=== PATIENT | female | born 1940 | race Caucasian/White ===

== ENCOUNTER 2023-02-17 18:17 | Outpatient (RCR) | payer MEDICARE, SELFPAY | END 2023-03-13 23:59 | disposition home or self-care (01) | LOC: MM 18:17 | PROVIDERS: PCP Internal Medicine; Visit Provider Internal Medicine | DX: Z51.81 Encounter for therapeutic drug level monitoring (principal); Z79.01 Long term (current) use of anticoagulants; I25.2 Old myocardial infarction | CPT/HCPCS: 85610; G0463 ==

== ENCOUNTER 2023-03-18 10:24 | Outpatient (RCR) | payer MEDICARE, SELFPAY | END 2023-04-13 17:11 | disposition home or self-care (01) | LOC: MM 10:24 | PROVIDERS: PCP Internal Medicine; Visit Provider Internal Medicine | DX: Z51.81 Encounter for therapeutic drug level monitoring (principal); Z79.01 Long term (current) use of anticoagulants; I25.2 Old myocardial infarction | CPT/HCPCS: 85610; G0463 ==

== ENCOUNTER 2023-04-14 09:52 | Outpatient (RCR) | payer MEDICARE, SELFPAY | END 2023-05-14 17:45 | disposition home or self-care (01) | LOC: MM 09:52 | PROVIDERS: PCP Internal Medicine; Visit Provider Internal Medicine | DX: Z51.81 Encounter for therapeutic drug level monitoring (principal); Z79.01 Long term (current) use of anticoagulants; I25.2 Old myocardial infarction | CPT/HCPCS: 85610; G0463 ==

== ENCOUNTER 2023-05-15 10:40 | Outpatient (RCR) | payer MEDICARE, SELFPAY | END 2023-06-12 17:04 | disposition home or self-care (01) | LOC: MM 10:40 | PROVIDERS: PCP Internal Medicine; Visit Provider Internal Medicine | DX: Z51.81 Encounter for therapeutic drug level monitoring (principal); Z79.01 Long term (current) use of anticoagulants; I25.2 Old myocardial infarction ==

== ENCOUNTER 2023-06-01 18:05 | Emergency (ER) | payer MEDICARE, SELFPAY ==
[2023-06-01] VITALS (44 sets, daily range): BP systolic 73–121; BP diastolic 32–61; PULSE 58–76; RESP 11–31; TEMP 37.4; O2SAT 78–100; BMI 22.7
--- NOTE | 2023-06-01 18:28 | CT_ITS ---
The [address] [address] Patient Name: BRIANNE HERNANDEZ MRN: [id number] date: 1940 Sex: F Assigned Patient Location: ER Current Patient Location: ER Accession/Order Number: [id number] Exam Date: 06/01/2023 20:05 Report Date: 06/01/2023 20:49 At the request of: CHARLES LOAIZA Procedure: CT head/brain wo con EXAMINATION: CT head/brain wo con HISTORY: Altered mental status - TECHNIQUE: CT head without contrast. All CT scans at this facility use dose modulation, iterative reconstruction, and/or weight based dosing when appropriate to reduce radiation dose to as low as reasonably achievable. COMPARISON: CT brain 03/02/2019 RESULT: Post-operative change: None. Acute change: No evidence of an acute intracranial process. Hemorrhage: No evidence of acute intracranial hemorrhage. Mass Lesion / Mass Effect: No evidence of an intracranial mass or extraaxial fluid collection. No significant mass effect. Chronic change: Patchy foci of low attenuation coefficient are present within the supratentorial white matter which is a nonspecific finding but likely represents moderate microvascular ischemia. Atherosclerotic calcification of the carotid siphons and vertebrobasilar arteries. Stable right cerebral convexity encephalomalacia, secondary to prior large right MCA distribution infarct. Parenchyma: No significant parenchymal volume loss. Ventricles: Normal caliber and morphology. Other: The calvarium, skull base, and extracranial soft tissues are unremarkable. Complete opacification left maxillary sinus. Mastoid air cells are clear. Bilateral lens replacements. CT/CT head/brain wo con IMPRESSION: 1. No acute intracranial abnormality; no acute infarct, intracranial hemorrhage or extra-axial collection. 2. 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 Electronically authenticated by: ALVIN HEAD Date: 06/01/2023 20:49
--- NOTE | 2023-06-01 18:28 | CT_ITS ---
[address] [address] Patient Name: BRIANNE HERNANDEZ MRN: [id number] date: 1940 Sex: F Assigned Patient Location: ER Current Patient Location: ER Accession/Order Number: [id number] Exam Date: 06/01/2023 20:05 Report Date: 06/01/2023 21:02 At the request of: CHARLES LOAIZA Procedure: CT abdomen pelvis wo con CT ABDOMEN/PELVIS WITHOUT IV CONTRAST. INDICATION: Jaundice, gallstones COMPARISON: 12/27/2020 TECHNIQUE: Contiguous axial images were obtained from the lung bases to the pelvic floor without intravenous or oral contrast. Coronal and sagittal reformations are provided. FINDINGS: Somewhat limited evaluation due to motion artifact. LOWER LUNGS: Right lower lobe calcified granuloma. Cardiomegaly. LIVER/BILIARY TREE: No discrete lesion. No intrahepatic ductal dilatation. GALLBLADDER: Evaluation is somewhat limited due to motion artifact. There is mild gallbladder wall thickening. There is questionable pericholecystic stranding. Cholelithiasis. CBD: Limited evaluation. SPLEEN: Normal in size. PANCREAS: No appreciable peripancreatic fluid. No pancreatic ductal dilatation. No discrete lesion. ADRENALS: Normal. KIDNEYS there is a 1.5 cm low-density cystic lesion in the inferior pole left kidney.: No hydronephrosis. Right nephrolithiasis. STOMACH AND BOWEL: Redemonstrated moderate-sized hiatal hernia. No dilated bowel loops. No bowel wall thickening. APPENDIX: Not visualized. PERITONEAL CAVITY: No fluid. No fat stranding. ABDOMINAL WALL: There is questionable pericholecystic stranding.. LYMPH NODES: No mesenteric or retroperitoneal lymphadenopathy by CT criteria. ABDOMINAL AORTA: No aneurysm. PELVIS: Decompressed bladder with Gunn catheter. MUSCULOSKELETAL: No acute osseous abnormality. There are chronic multilevel lumbar vertebral body compression fractures. CT/CT abdomen pelvis wo con IMPRESSION: Cholelithiasis with findings suspicious for acute cholecystitis. Evaluation is somewhat limited due to motion. Electronically authenticated by: LASHAWN RUTH Date: 06/01/2023 21:02
--- NOTE | 2023-06-01 18:28 | XR_ITS ---
The [address] [address] Patient Name: BRIANNE HERNANDEZ MRN: [id number] date: 1940 Sex: F Assigned Patient Location: ER Current Patient Location: ER Accession/Order Number: [id number] Exam Date: 06/01/2023 20:02 Report Date: 06/01/2023 20:53 At the request of: CHARLES LOAIZA Procedure: XR chest 1V EXAMINATION: XR chest 1V HISTORY: Altered mental status COMPARISON: Chest x-ray 04/25/2022 TECHNIQUE: Portable chest FINDINGS: The lung parenchyma is free of consolidation or infiltrate. Stable right hemithorax calcified pulmonary granuloma. No pneumothorax or pleural effusion. Left-sided cardiac pacemaker. The cardiac, mediastinal and hilar contours are normal. The visualized osseous structures exhibit no gross abnormality. XR/XR chest 1V IMPRESSION: No acute cardiopulmonary abnormality. Electronically authenticated by: CATHY STEINBERG Date: 06/01/2023 20:53
--- NOTE | 2023-06-01 18:28 | ECG_ITS ---
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
[2023-06-01] MEDS: 0.9 % SODIUM CHLORIDE 1,000 ML 1000 ML IV ×2 (18:50→20:33)
[2023-06-01 19:13] LABS: pH VBG 7.492 (7.330-7.430)
--- NOTE | 2023-06-01 19:14 | ED.AMS1 ---
HPI - Altered Mental Status General Chief Complaint: Weakness Stated Complaint: ALTERED MENTAL STATUS Time Seen by Provider: 06/01/23 18:22 Source: family Mode of arrival: Wheelchair Limitations: altered mental status and physical limitation History of Present Illness HPI narrative: patient is an 82-year-old female with a history of some baseline dementia who is brought to the emergency department by her granddaughter for the evaluation of altered mental status and weakness over the last two days. Patient's granddaughter provides the entire history, she states that one of the patient's other granddaughters visited the patient last night and noted that she seemed more weak and slightly more confused. She was not able to get herself up out of bed. granddaughter reports that the patient was saturated in urine this afternoon. Today she seems slightly jaundice. She has a history of gallstones but has never had acute cholecystitis. She has had diarrhea today. She has not noted to have any extremity injuries. No fevers or vomiting. She started Xarelto today, she has just been recently switched from Coumadin for her atrial fibrillation. Related Data Allergies Allergy/AdvReac Type Severity Reaction Status Date / Time morphine AdvReac Intermediate Dizziness Verified 06/01/23 18:21 Review of Systems ROS Constitutional Denies: fever or chills Ears, nose, mouth, and throat Denies: throat pain Cardiovascular Denies: chest pain Respiratory Denies: shortness of breath or cough Gastrointestinal Reports: diarrhea; Denies: nausea or vomiting Genitourinary Denies: painful urination Musculoskeletal Denies: back pain Integumentary/Breast Denies: rash Neurological Reports: weakness in extremities Endocrine Denies: excessive urination Hematologic/Lymphatic Denies: easy bruising Exam Narrative Exam Narrative: Gen.: Awake, alert, in no distress Head: Normocephalic, atraumatic ENT: Moist mucous membranes, dry mucous membranes Respiratory: No respiratory distress, lungs clear bilaterally Cardio: Regular rate and rhythm Gastrointestinal: Abdomen is soft, nondistended and nontender to palpation Extremities: Moves extremities equally, no injuries noted Psych: Normal mood and affect Neuro: alert and oriented to person, no slurred speech or unilateral weakness noted. Normal dorsiflexion and plantarflexion of the lower extremities with normal hip flexion bilaterally Skin: Warm, dry, intact; patient is mildly jaundiced Constitutional Vital Signs, click to edit/add: Last Vital Signs Temp 99.3 F 09/18/23 18:14 Pulse 70 06/01/23 20:40 Resp 14 06/01/23 20:40 BP 110/49 06/01/23 20:33 Pulse Ox 96 06/01/23 20:40 O2 Del Method Room Air 06/01/23 18:53 Course Vital Signs Vital signs: Vital Signs Temperature 99.3 F 06/01/23 18:14 Pulse Rate 70 06/01/23 18:14 Respiratory Rate 20 06/01/23 18:14 Blood Pressure 73/61 L 06/01/23 18:14 Pulse Oximetry 99 06/01/23 18:14 Oxygen Delivery Method Room Air 06/01/23 18:14 Temperature 99.3 F 06/01/23 18:14 Pulse Rate 70 06/01/23 20:40 Respiratory Rate 14 06/01/23 20:40 Blood Pressure 110/49 06/01/23 20:33 Pulse Oximetry 96 06/01/23 20:40 Oxygen Delivery Method Room Air 06/01/23 18:53 MDM - Altered Mental Status MDM Narrative Medical decision making narrative: patient had no complaints of pain in the Emergency Room. She was initially hypotensive in treated with IV fluid bolus with improvement of blood pressure. Lab studies show leukocytosis, elevated lactic acid. Blood cultures were obtained. Urine specimen is unremarkable. Patient is noted to have acute kidney injury as well as elevated bilirubin, elevated LFTs. 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 CT shows concern for acute cholecystitis, given the patient's jaundice and elevated bilirubin, we suspect an obstructed stone. She will need transfer to tertiary care facility for ERCP she cannot stay at this facility. She was treated with Invanz due to penicillin ALLERGY. I discussed the case with her granddaughter Ira at bedside who is her power of offender employment specialist. She is in agreement with transfer to tertiary care facility and states that the patient has seen cardiology at [facility] previously and they prefer transfer to this facility. Transfer initiated at 2114. patient was accepted by Dr. Beck ([id number]) at [facility] for transfer. We are awaiting a bed at this time. Critical care time thirty-five minutes Medical Records Attestation: I reviewed the patient's medical records. Lab Data Attestation: I reviewed the patient's lab results. Labs: Lab Results 06/01/23 06/01/23 06/01/23 Range/Units 18:30 18:47 19:55 WBC 14.9 H (4.0-11.0) 10^3/uL RBC 3.86 L (4.20-5.40) 10^6/uL Hgb 12.2 (12.0-16.0) g/dL Hct 37.1 (36.0-48.0) % MCV 96.1 (81.0-99.0) fL MCH 31.6 (26.7-34.0) pg MCHC 32.9 (29.9-35.2) g/dL RDW 14.4 (11.0-15.0) % Plt Count 186 (150-450) 10^3/uL MPV 11.3 (9.5-13.5) fL Neut % (Auto) 82.3 H (43.0-75.0) % Lymph % (Auto) 7.0 L (20.5-60.0) % [place] % (Auto) 9.9 (1.7-12.0) % Eos % (Auto) 0.0 L (0.9-7.0) % Baso % (Auto) 0.1 L (0.2-2.0) % Neut # (Auto) 12.3 H (1.4-6.5) 10^3/uL Lymph # (Auto) 1.0 L (1.2-3.8) 10^3/uL [place] # (Auto) 1.5 H (0.3-0.8) 10^3/uL Eos # (Auto) 0.0 (0.0-0.7) 10^3/uL Baso # (Auto) 0.0 (0.0-0.1) 10^3/uL Abs Immat Gran (auto) 0.10 H (0.00-0.03) 10^3/uL Imm/Tot Granulo (auto) 0.7 H (0.0-0.5) % PT 14.4 H (9.0-11.6) sec INR 1.38 VBG pH 7.492 H (7.330-7.430) VBG pCO2 33.0 L (40.0-52.0) mmHg Sodium 136 (136-145) mmol/L Potassium 3.7 (3.5-5.1) mmol/L Chloride 99 (98-107) mmol/L Carbon Dioxide 28.7 (21.0-32.0) mmol/L Anion Gap 12.0 BUN 36.0 H (7.0-18.0) mg/dL Creatinine 2.09 H (0.55-1.02) mg/dL Est GFR ( Amer) 27 L (>=60) Est GFR (Non-Af Amer) 23 L (>=60) BUN/Creatinine Ratio 17.2 Glucose 131 H (74-106) mg/dL Lactate 2.3 H* (0.4-2.0) mmol/L Calcium 8.9 (8.5-10.1) mg/dL Total Bilirubin 3.1 H (0.2-1.0) mg/dL AST 105 H (15-37) U/L ALT 117 H (14-59) U/L Alkaline Phosphatase 76 (46-116) U/L Ammonia 24 (11-32) umol/L Total Creatine Kinase 52 (26-192) U/L Troponin I High Sens 25.9 (4.0-51.3) pg/mL Total Protein 6.9 (6.4-8.2) g/dL Albumin 2.6 L (3.4-5.0) g/dL Globulin 4.3 g/dL Albumin/Globulin Ratio 0.6 TSH 0.431 (0.358-3.740) uIU/mL Urine Color Dk. orange (YELLOW) Urine Clarity Clear (CLEAR) Urine pH 5.0 (5.0-9.0) Ur Specific [place] 1.025 (1.005-1.025) Urine Protein Negative (NEG/TRACE) mg/dL Urine Glucose (UA) Negative (NEGATIVE) mg/dL Urine Ketones Negative (NEGATIVE) mg/dL Urine Occult Blood Negative (NEGATIVE) Urine Nitrite Negative (NEGATIVE) Urine Bilirubin Moderate A (NEGATIVE) Urine Urobilinogen 2.0 A (0.2-1.0) EU/dL Ur Leukocyte Esterase Negative (NEGATIVE) Acetaminophen <2.0 L (10.0-30.0) ug/mL Imaging Data Chest x-ray: Attestation: I have reviewed the pertinent imaging results. Radiologist's impression: Procedure: XR chest 1V EXAMINATION: XR chest 1V HISTORY: Altered mental status COMPARISON: Chest x-ray 04/25/2022 TECHNIQUE: Portable chest FINDINGS: The lung parenchyma is free of consolidation or infiltrate. Stable right hemithorax calcified pulmonary granuloma. No pneumothorax or pleural effusion. Left-sided cardiac pacemaker. The cardiac, mediastinal and hilar contours are normal. The visualized osseous structures exhibit no gross abnormality. IMPRESSION: No acute cardiopulmonary abnormality. Electronically authenticated by: CATHY STEINBERG Date: 06/01/2023 20:53 CT scan - head: Attestation: I have reviewed the pertinent imaging results. Radiologist's impression: Procedure: CT head/brain wo con EXAMINATION: CT head/brain wo con HISTORY: Altered mental status - TECHNIQUE: CT head without contrast. All CT scans at this facility use dose modulation, iterative reconstruction, and/or weight based dosing when appropriate to reduce radiation dose to as low as reasonably achievable. COMPARISON: CT brain 03/02/2019 RESULT: Post-operative change: None. Acute change: No evidence of an acute intracranial process. Hemorrhage: No evidence of acute intracranial hemorrhage. Mass Lesion / Mass Effect: No evidence of an intracranial mass or extraaxial fluid collection. No significant mass effect. Chronic change: Patchy foci of low attenuation coefficient are present within the supratentorial white matter which is a nonspecific finding but likely represents moderate microvascular ischemia. Atherosclerotic calcification of the carotid siphons and vertebrobasilar arteries. Stable right cerebral convexity encephalomalacia, secondary to prior large right MCA distribution infarct. Parenchyma: No significant parenchymal volume loss. Ventricles: Normal caliber and morphology. Other: The calvarium, skull base, and extracranial soft tissues are unremarkable. Complete opacification left maxillary sinus. Mastoid air cells are clear. Bilateral lens replacements. IMPRESSION: 1. No acute intracranial abnormality; no acute infarct, intracranial hemorrhage or extra-axial collection. 2. 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 Electronically authenticated by: ALVIN HEAD Date: 06/01/2023 20:49 CT scan - abdomen: Radiologist's impression: Procedure: CT abdomen pelvis wo con CT ABDOMEN/PELVIS WITHOUT IV CONTRAST. INDICATION: Jaundice, gallstones COMPARISON: 12/27/2020 TECHNIQUE: Contiguous axial images were obtained from the lung bases to the pelvic floor without intravenous or oral contrast. Coronal and sagittal reformations are provided. FINDINGS: Somewhat limited evaluation due to motion artifact. LOWER LUNGS: Right lower lobe calcified granuloma. Cardiomegaly. LIVER/BILIARY TREE: No discrete lesion. No intrahepatic ductal dilatation. GALLBLADDER: Evaluation is somewhat limited due to motion artifact. There is mild gallbladder wall thickening. There is questionable pericholecystic stranding. Cholelithiasis. CBD: Limited evaluation. SPLEEN: Normal in size. PANCREAS: No appreciable peripancreatic fluid. No pancreatic ductal dilatation. No discrete lesion. ADRENALS: Normal. KIDNEYS there is a 1.5 cm low-density cystic lesion in the inferior pole left kidney.: No hydronephrosis. Right nephrolithiasis. STOMACH AND BOWEL: Redemonstrated moderate-sized hiatal hernia. No dilated bowel loops. No bowel wall thickening. APPENDIX: Not visualized. PERITONEAL CAVITY: No fluid. No fat stranding. ABDOMINAL WALL: There is questionable pericholecystic stranding.. LYMPH NODES: No mesenteric or retroperitoneal lymphadenopathy by CT criteria. ABDOMINAL AORTA: No aneurysm. PELVIS: Decompressed bladder with Gunn catheter. MUSCULOSKELETAL: No acute osseous abnormality. There are chronic multilevel lumbar vertebral body compression fractures. IMPRESSION: Cholelithiasis with findings suspicious for acute cholecystitis. Evaluation is somewhat limited due to motion. Electronically authenticated by: LASHAWN RUTH Date: 06/01/2023 21:02 ECG Data Attestation: I personally reviewed and interpreted this ECG as follows: (atrial flutter at a rate of sixty-three, paced rhythm, no acute ST elevation or ectopy. EKG reviewed by attending physician) Discharge Plan Discharge Chief Complaint: Weakness Clinical Impression: Acute kidney injury, Jaundice, Weakness, Acute cholecystitis Patient Disposition: [facility] Time of Disposition Decision: 21:42 Discharge Location: [facility] Condition: Good Mode of Transportation: EMS Referrals: Shaikh Dhaliwal MD [Primary Care Provider] - 1 week
[2023-06-01 19:18] LABS: Basophils Percent Auto 0.1 % (0.2-2.0); Hematocrit 37.1 % (36.0-48.0); Hemoglobin 12.2 g/dL (12.0-16.0); Immature Granulocytes Pct Auto 0.7 % (0.0-0.5); Mean Corpuscular HGB Conc 32.9 g/dL (29.9-35.2); Mean Corpuscular Hemoglobin 31.6 pg (26.7-34.0); Mean Corpuscular Volume 96.1 fL (81.0-99.0); Mean Platelet Volume 11.3 fL (9.5-13.5); Monocytes Absolute Auto 1.5 10^3/uL (0.3-0.8); Monocytes Percent Auto 9.9 % (1.7-12.0); Neutrophils Absolute Auto 12.3 10^3/uL (1.4-6.5); Neutrophils Percent Auto 82.3 % (43.0-75.0); Platelet Count 186 10^3/uL (150-450); Red Blood Count 3.86 10^6/uL (4.20-5.40); Red Cell Distribution Width 14.4 % (11.0-15.0); White Blood Count 14.9 10^3/uL (4.0-11.0)
[2023-06-01 19:30] LABS: INR 1.38; Prothrombin Time 14.4 sec (9.0-11.6)
[2023-06-01 19:33] LABS: Ammonia 24 umol/L (11-32)
[2023-06-01 19:39] LABS: Alanine Aminotransferase 117 U/L (14-59); Albumin Globulin Ratio 0.6; Albumin Level 2.6 g/dL (3.4-5.0); Alkaline Phosphatase 76 U/L (46-116); Aspartate Amino Transferase 105 U/L (15-37); BUN Creatinine Ratio 17.2; Bilirubin Total 3.1 mg/dL (0.2-1.0); Calcium 8.9 mg/dL (8.5-10.1); Carbon Dioxide 28.7 mmol/L (21.0-32.0); Chloride 99 mmol/L (98-107); Estimated GFR (African America 27 (>=60); Estimated GFR (Non-African Ame 23 (>=60); Globulin 4.3 g/dL; Glucose 131 mg/dL (74-106); Potassium 3.7 mmol/L (3.5-5.1); Sodium 136 mmol/L (136-145); Total Protein 6.9 g/dL (6.4-8.2)
[2023-06-01 19:45] LABS: Thyroid Stimulating Hormone 0.431 uIU/mL (0.358-3.740); Troponin I High Sensitivity 25.9 pg/mL (4.0-51.3)
[2023-06-01 19:57] LABS: Lactate/Lactic Acid 2.3 mmol/L (0.4-2.0)
[2023-06-01 20:09] LABS: Acetaminophen <2.0 ug/mL (10.0-30.0)
[2023-06-01 20:26] LABS: Creatine Kinase 52 U/L (26-192)
[2023-06-01 21:03] LABS: Bilirubin Urine MODERATE (NEGATIVE); Blood Urine NEGATIVE (NEGATIVE); Clarity Urine CLEAR (CLEAR); Color Urine DK. ORANGE (YELLOW); Glucose Urine UA NEGATIVE (NEGATIVE); Ketones Urine NEGATIVE (NEGATIVE); Leukocyte Esterase Urine NEGATIVE (NEGATIVE); Nitrite Urine NEGATIVE (NEGATIVE); Protein Urine NEGATIVE (NEG/TRACE); Specific Gravity Urine 1.025 (1.005-1.025)
[2023-06-01] MEDS: ERTAPENEM SODIUM 1 GM in 0.9 % SODIUM CHLORIDE 50 ML IV (21:27)
[2023-06-01 21:33] LABS: Urine Microscopic Indicated NO
[2023-06-01 21:57] LABS: Lactate/Lactic Acid 0.6 mmol/L (0.4-2.0)
== END 2023-06-01 23:55 | disposition short-term general hospital (02) ==
PROVIDERS: Physician Assistant; Emergency Provider Emergency Medicine; PCP Internal Medicine
DX: K81.0 Acute cholecystitis (principal); R53.1 Weakness; R17 Unspecified jaundice; N17.9 Acute kidney failure, unspecified; I95.9 Hypotension, unspecified; F03.90 Unspecified dementia, unspecified severity, without behavioral disturbance, psychotic disturbance, mood disturbance, and anxiety; Z79.01 Long term (current) use of anticoagulants; I48.91 Unspecified atrial fibrillation
CPT/HCPCS: 36415; 70450; 71045; 74176; 80053; 80329; 81003; 82140; 82550; 82800; 83605; 83690; 84443; 84484; 85025; 85610; 87040; 93005; 96361; 96365; 99285; J1335

== ENCOUNTER 2023-06-15 02:12 | Outpatient (RCR) | payer MEDICARE, SELFPAY | END 2023-07-14 17:30 | disposition home or self-care (01) | LOC: MM 02:12 | PROVIDERS: PCP Internal Medicine; Visit Provider Internal Medicine | DX: Z51.81 Encounter for therapeutic drug level monitoring (principal); Z79.01 Long term (current) use of anticoagulants; I25.2 Old myocardial infarction ==

== ENCOUNTER 2023-07-15 00:31 | Outpatient (RCR) | payer MEDICARE, SELFPAY | END 2023-08-13 16:43 | disposition home or self-care (01) | LOC: MM 00:31 | PROVIDERS: PCP Internal Medicine; Visit Provider Internal Medicine | DX: Z51.81 Encounter for therapeutic drug level monitoring (principal); Z79.01 Long term (current) use of anticoagulants; I25.2 Old myocardial infarction ==

== ENCOUNTER 2023-09-05 17:27 | Emergency (ER) | payer MEDICARE, SELFPAY ==
[2023-09-05 17:36] VITALS: BP 154/80; PULSE 88; RESP 16; TEMP 36.7; O2SAT 99; BMI 18.9
--- NOTE | 2023-09-05 17:48 | ED.GENADUL1 ---
HPI - General Adult General Chief complaint: Recheck/Abnormal Lab/Rx Stated complaint: gallbladder drain accidentally pulled out Time Seen by Provider: 09/05/23 17:29 Source: patient Mode of arrival: walk-in History of Present Illness HPI narrative: Patient is an 82-year-old female who presents to the emergency department after accidentally pulling out her chronic gallbladder drain. She was diagnosed with acute cholecystitis in May of this year at this facility and was transferred to [facility] to be evaluated by general surgery. She was not found to be a surgical candidate for the acute cholecystitis and instead a drain was placed. Patient is currently on hospice. She accidentally removed her drain today, pulling it out. There has been minimal drainage on a bandage that the daughter placed. No bleeding. Patient has no other focal medical complaints. Related Data Home Medications Medication Instructions Recorded Confirmed apixaban 2.5 mg tablet (Eliquis) 2.5 mg PO QDAY 06/01/23 06/01/23 carvedilol 3.125 mg tablet 3.125 mg PO Q12H 06/01/23 06/01/23 donepezil 10 mg tablet 10 mg PO QDAY 06/01/23 06/01/23 fenofibrate nanocrystallized 145 145 mg PO QDAY 06/01/23 06/01/23 mg tablet ferrous sulfate 325 mg (65 mg 325 mg PO QDAY 06/01/23 06/01/23 iron) tablet furosemide 20 mg tablet 20 mg PO QDAY 06/01/23 06/01/23 levothyroxine 75 mcg tablet 75 mcg PO QDAY 06/01/23 06/01/23 lisinopril 2.5 mg tablet 2.5 mg PO QDAY 06/01/23 06/01/23 paroxetine HCl 10 mg tablet 10 mg PO QDAY 06/01/23 06/01/23 spironolactone 25 mg tablet 25 mg PO QDAY 06/01/23 06/01/23 warfarin 4 mg tablet 4 mg PO QDAY 06/01/23 06/01/23 Allergies Allergy/AdvReac Type Severity Reaction Status Date / Time morphine AdvReac Intermediate Dizziness Verified 09/05/23 17:36 Review of Systems ROS Constitutional Denies: fever or chills Ears, nose, mouth, and throat Denies: neck pain Cardiovascular Denies: chest pain Respiratory Denies: shortness of breath or cough Gastrointestinal Denies: nausea, vomiting or diarrhea Genitourinary Denies: painful urination Integumentary/Breast Denies: rash Neurological Denies: headache Exam Narrative Exam Narrative: Gen.: Awake, alert, in no distress Head: Normocephalic, atraumatic ENT: Moist mucous membranes Respiratory: No respiratory distress Gastrointestinal: Abdomen is soft, nondistended and nontender to palpation; small incision in the right upper quadrant where the drain has been removed, no active drainage, no lacerations or bleeding Extremities: Moves extremities equally Psych: Normal mood and affect Neuro: No focal neuro deficit Skin: Warm, dry, intact Constitutional Vital Signs, click to edit/add: Last Vital Signs Temp 98.0 F 09/05/23 17:36 Pulse 88 09/05/23 17:36 Resp 16 09/05/23 17:36 BP 154/80 H 09/05/23 17:36 Pulse Ox 99 09/05/23 17:36 O2 Del Method Room Air 09/05/23 17:36 Course Vital Signs Vital signs: Vital Signs Temperature 98.0 F 09/05/23 17:36 Pulse Rate 88 09/05/23 17:36 Respiratory Rate 16 09/05/23 17:36 Blood Pressure 154/80 H 09/05/23 17:36 Pulse Oximetry 99 09/05/23 17:36 Oxygen Delivery Method Room Air 09/05/23 17:36 Temperature 98.0 F 09/05/23 17:36 Pulse Rate 88 09/05/23 17:36 Respiratory Rate 16 09/05/23 17:36 Blood Pressure 154/80 H 09/05/23 17:36 Pulse Oximetry 99 09/05/23 17:36 Oxygen Delivery Method Room Air 09/05/23 17:36 Medical Decision Making MDM Narrative Medical decision making narrative: Patient with no pain, bleeding or drainage at the site of the gallbladder drain which is completely removed. She has stable vital signs. Discussed with [place] surgeon on-call, Dr. [place], who discussed the case with attending physician. There is no need for emergent transfer or placement of the gallbladder drain. Patient can follow-up with general surgery as an outpatient as needed. Return to the ER if symptoms change or worsen. Medical Records Medical records reviewed: Yes I reviewed the patient's medical records Discharge Plan Discharge Chief Complaint: Recheck/Abnormal Lab/Rx Clinical Impression: Encounter for wound re-check Patient Disposition: Home, Self-Care Time of Disposition Decision: 18:27 Condition: Good Prescriptions / Home Meds: No Action Eliquis 2.5 mg tablet 2.5 mg PO QDAY carvedilol 3.125 mg tablet 3.125 mg PO Q12H donepezil 10 mg tablet 10 mg PO QDAY fenofibrate nanocrystallized 145 mg tablet 145 mg PO QDAY furosemide 20 mg tablet 20 mg PO QDAY ferrous sulfate 325 mg (65 mg iron) tablet 325 mg PO QDAY levothyroxine 75 mcg tablet 75 mcg PO QDAY lisinopril 2.5 mg tablet 2.5 mg PO QDAY paroxetine HCl 10 mg tablet 10 mg PO QDAY spironolactone 25 mg tablet 25 mg PO QDAY warfarin 4 mg tablet 4 mg PO QDAY Instructions: Acute Wounds (ED) Additional Instructions: Follow up with [facility] surgery - tel:[phone] Stand Alone Forms: Portal Instructions Referrals: Shaikh Dhaliwal MD [Primary Care Provider] - 1 week
--- OUTSIDE RECORDS SUMMARY | 2023-09-05 17:50 | XMS_ITS | CCD ---
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 Role Phone TERRI CHANNING Attending Unavailable MASROOR, CHANNING Admitting Unavailable UNKNOWN, PHYSICIAN Primary Care Unavailable UNKNOWN, PHYSICIAN Referring Unavailable ERIC HANDLEY Admitting Unavailable ERIC HANDLEY Attending Unavailable FAWWAD, COLLINS Primary Care Unavailable FAWWAD, COLLINS Referring Unavailable MASROOR, CHANNING Admitting Unavailable UNKNOWN, PHYSICIAN Primary Care Unavailable UNKNOWN, PHYSICIAN Referring Unavailable MASROOR, CHANNING Attending Unavailable ERIC HANDLEY Referring Unavailable ERIC HANDLEY Referring Unavailable FAWWAD, COLLINS H Primary Care Unavailable FAWWAD, COLLINS H Admitting Unavailable FAWWAD, COLLINS H Attending Unavailable FAWWAD, COLLINS H Primary Care Unavailable FAWWAD, COLLINS H Admitting Unavailable FAWWAD, COLLINS H Attending Unavailable FAWWAD, COLLINS H Attending Unavailable FAWWAD, COLLINS H Admitting Unavailable FAWWAD, COLLINS H Primary Care Unavailable EDYTA MORENO Primary Care Unavailable FAWWAD, COLLINS H Admitting Unavailable FAWWAD, COLLINS H Attending Unavailable FAWWAD, COLLINS H Primary Care Unavailable FAWWAD, COLLINS H Admitting Unavailable FAWWAD, COLLINS H Attending Unavailable FAWWAD, COLLINS H Primary Care Unavailable FAWWAD, COLLINS H Admitting Unavailable FAWWAD, COLLINS H Attending Unavailable FAWWAD, COLLINS H Primary Care Unavailable FAWWAD, COLLINS H Admitting Unavailable FAWWAD, COLLINS H Attending Unavailable FAWWAD, COLLINS H Attending Unavailable FAWWAD, COLLINS H Admitting Unavailable FAWWAD, COLLINS H Primary Care Unavailable FAWWAD, COLLINS H Primary Care Unavailable FAWWAD, COLLINS H Consulting Unavailable FAWWAD, COLLINS H Admitting Unavailable FAWWAD, COLLINS H Attending Unavailable FAWWAD, COLLINS H Primary Care Unavailable ARIELLA, ERIC Admitting Unavailable ARIELLA, ERIC Consulting Unavailable ARIELLA, ERIC Attending Unavailable FAWWAD, COLLINS H Consulting Unavailable FAWWAD, COLLINS H Attending Unavailable FAWWAD, COLLINS H Admitting Unavailable FAWWAD, COLLINS H Primary Care Unavailable FAWWAD, COLLINS H Primary Care Unavailable HOY ., DR GARCIA Attending Unavailable SIXTOY ., DR GARCIA Admitting Unavailable KEDAR, DR BITA Chaudhry Consulting Unavailable HOY ., DR GARCIA Consulting Unavailable ADIELCHNY ., NGOC SOTO Consulting UnavailCATHY Chatterjee Consulting Unavailable FAWWAD, COLLINS H Attending Unavailable FAWWAD, COLLINS H Admitting Unavailable FAWWAD, COLLINS H Primary Care Unavailable FAWWAD, COLLINS H Primary Care Unavailable FAWWAD, COLLINS H Attending Unavailable FAWWAD, COLLINS H Admitting Unavailable FAWWAD, COLLINS H Primary Care Unavailable FAWWAD, COLLINS H Attending Unavailable FAWWAD, COLLINS H Admitting Unavailable Allergies Allergy Classification Reported Allergen(s) Allergy Type Date of Onset Reaction(s) Facility (1 source) Morphine Drug Allergy 9 [facility] (1 source) ALLERGIES NOT ON FILE; Translations: [ALLERGIES NOT ON FILE] Propensity to adverse reactions (disorder) [facility] (1 source) Morphine Drug Allergy [facility] Problems Active Problems Problem Classification Problem Date Documented Da te Episodic/Chronic Cardiac dysrhythmias (5 sources) Unspecified atrial fibrillation; Translations: [Paroxysmal atrial fibrillation] Onset: 03-21-2022 Chronic Conduction disorders (3 sources) Encounter for adjustment and management of automatic implantable cardiac defibrillator; Translations: [Presence of cardiac pacemaker] Onset: 04-30-2022 Chronic Congestive heart failure; nonhypertensive (1 source) Acute on chronic combined systolic (congestive) and diastolic (congestive) heart failure; Translations: [AC CHRN COMB SYSTOLIC AND DIASTOL CHF] Onset: 04-30-2022 Chronic Coronary atherosclerosis and other heart disease (3 sources) Old myocardial infarction; 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] Onset: 04-30-2022 Chronic Diabetes mellitus with complications (5 sources) Type 2 diabetes mellitus with diabetic chronic kidney disease; Translations: [TYPE 2 DM W/DIABETIC CKD] Onset: 04-30-2022 Chronic Diseases of white blood cells (1 source) Elevated white blood cell count, unspecified; Translations: [ELEVATED WHITE BLOOD CELL COUNT UNS] Onset: 04-30-2022 Chronic Heart valve disorders (1 source) Combined rheumatic disorders of mitral, aortic and tricuspid valves; Translations: [COMB RHEUMAT D/O MITRL AORTC TRICSP] Onset: 03-25-2022 Chronic Hypertension with complications and secondary hypertension (1 source) Hypertensive heart and chronic kidney disease with heart failure and stage 1 through stage 4 chronic kidney disease, or unspecified chronic kidney disease; Translations: [HTN HRT CKD W/HF STAGE 1-4/UNS CKD] Onset: 04-30-2022 Chronic Other aftercare (4 sources) Encounter for therapeutic drug level monitoring; Translations: [ENC THERAPEUTC DRUG LEVL MONITORING] Onset: 01-12-2023 Episodic Other aftercare (1 source) 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 container terminal (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) use of anticoagulants; Translations: [CENTRAL CONTROL ROOM OPERATOR CURRNT USE ANTICOAGULANTS] Onset: 02-11-2023 Episodic Syncope (2 sources) Syncope and collapse; Translations: [Syncope and collapse] Onset: 10-09-2022 Episodic Thyroid disorders (1 source) Hypothyroidism, unspecified; Translations: [HYPOTHYROIDISM UNSPECIFIED] Onset: 11-22-2022 Chronic Unclassified (1 source) CHRN KIDNEY DISEASE STG 3 UNSP; Translations: [CHRN KIDNEY DISEASE STG 3 UNSP] Onset: 11-22-2022 Viral infection (1 source) COVID-19; Translations: [COVID-19] Onset: 04-30-2022 Past or Other Problems Problem Classification Problem Date Documented Da te Episodic/Chronic Acute and unspecified renal failure (5 sources) Acute kidney failure, unspecified; Translations: [ACUTE KIDNEY FAILURE UNSPECIFIED] Onset: 04-30-2022 Episodic Coronary atherosclerosis and other heart disease (1 source) Presence of aortocoronary bypass graft; Translations: [PRESENCE AORTOCORONARY BYPASS GRAFT] Onset: 04-30-2022 Episodic Fever of unknown origin (4 sources) Fever, unspecified; Translations: [FEVER UNSPECIFIED] Onset: 04-26-2022 Episodic Fluid and electrolyte disorders (1 source) Hyperkalemia; Translations: [HYPERKALEMIA] Onset: 04-30-2022 Episodic Other aftercare (1 source) Other senior care (current) drug therapy; Translations: [OTH PENITENTIARY CURRENT DRUG THERAPY] Onset: 04-30-2022 Episodic Other circulatory disease (1 source) Personal history of transient ischemic attack (TIA), and cerebral infarction without residual deficits; Translations: [PERS HX TIA AND CI NO RESID DEFICIT] Onset: 11-13-2022 Episodic Other screening for suspected conditions (not mental disorders or infectious disease) (1 source) Other specified abnormal findings of blood chemistry; Translations: [OTH SPEC ABNORMAL FINDINGS BLD CHEM] Onset: 04-30-2022 Episodic Results Test Name Value Interpretation Reference Range Facility CBC AUTO DIFFon 11-20-2022 BASO # 0.0 103/ul Normal 0.0-0.1 [facility] Comment on above: Performed By: #### C BC #### [facility] [address] [address] [address] James Pan Basophils/100 WBC (Bld) 0.4 % Normal 0.2-2.0 [facility] Comment on above: Performed By: #### C BC #### [facility] [address] [address] [address] James Pan EO # 0.1 103/ul Normal 0.0-0.7 [facility] Comment on above: Performed By: #### C BC #### [facility] [address] [address] [address] James Pan Eosinophils/100 WBC (Bld) 1.4 % Normal 0.9-7.0 [facility] Comment on above: Performed By: #### C BC #### [facility] [address] [address] [address] James Pan Erythrocyte distribution width (RBC) [Ratio] 13.8 % Normal 11.0-15.0 [facility] Comment on above: Performed By: #### C BC #### [facility] [address] [address] [address] James Pan Hematocrit (Bld) [Volume fraction] 45.7 % Normal 36.0-48.0 [facility] Comment on above: Performed By: #### C BC #### [facility] [address] [place] [address] Dr. James Pan Hemoglobin (Bld) [Mass/Vol] 14.5 g/dL Normal 12.0-16.0 [facility] Comment on above: Performed By: #### C BC #### [facility] [address] [place] [address] Dr. James Pan IG # 0.02 10e3/ul Normal 0.00-0.03 [facility] Comment on above: Performed By: #### C BC #### [facility] [address] [place] [address] Dr. James Pan IG % 0.3 % Normal 0.0-0.5 [facility] Comment on above: Performed By: #### C BC #### [facility] [address] [place] [address] Dr. James Pan LYMPH # 2.1 103/ul Normal 1.2-3.8 [facility] Comment on above: Performed By: #### C BC #### [facility] [address] [place] [address] Dr. James Pan Lymphocytes/100 WBC (Bld) 27.5 % Normal 20.5-60.0 [facility] Comment on above: Performed By: #### C BC #### [facility] [address] [place] [address] Dr. James Pan MANUAL DIFF REQ NO Normal [facility] Comment on above: Performed By: #### C BC #### [facility] [address] [place] [address] Dr. James Pan MCH (RBC) [Entitic mass] 30.1 pg Normal 26.7-34.0 [facility] Comment on above: Performed By: #### C BC #### [facility] [address] [address] [address] James Pan MCHC (RBC) [Mass/Vol] 31.7 g/dL Normal 29.9-35.2 [facility] Comment on above: Performed By: #### C BC #### [facility] [address] [address] [address] James Pan MCV (RBC) [Entitic vol] 95.0 fL Normal 81.0-99.0 [facility] Comment on above: Performed By: #### C BC #### [facility] [address] [place] [address] Dr. James Pan MONO # 0.7 103/ul Normal 0.3-0.8 [facility] Comment on above: Performed By: #### C BC #### [facility] [address] [place] [address] Dr. James Pan Monocytes/100 WBC (Bld) 8.6 % Normal 1.7-12.0 [facility] Comment on above: Performed By: #### C BC #### [facility] [address] [place] [address] Dr. James Pan NEUT # 4.7 103/ul Normal 1.4-6.5 [facility] Comment on above: Performed By: #### C BC #### [facility] [address] [place] [address] Dr. James Pan Neutrophils/100 WBC (Bld) 61.8 % Normal 43.0-75.0 [facility] Comment on above: Performed By: #### C BC #### [facility] [address] [place] [address] Dr. James Pan Platelet mean volume (Bld) [Entitic vol] 9.8 fL Normal 9.5-13.5 [facility] Comment on above: Performed By: #### C BC #### [facility] [address] [place] [address] Dr. James Pan PLT 235 103/ul Normal 150-450 [facility] Comment on above: Performed By: #### C BC #### [facility] [address] [address] [address] James Pan RBC 4.81 106/ul Normal 4.20-5.40 [facility] Comment on above: Performed By: #### C BC #### [facility] [address] [place] [address] Dr. James Pan WBC 7.6 103/ul Normal 4.0-11.0 [facility] Comment on above: Performed By: #### C BC #### [facility] [address] [place] [address] Dr. James Pan GLYCOHEMOGLOBIN A1Con 2022 ADA RECOMMENDATION SEE BELOW Normal [facility] Comment on above: Result Comment: ADA RECOMMENDED LIMIT 4.0 - 6.0 ADA THERAPEUTIC TARGET < 7.0 ACTION SUGGESTED > 7.0 Performed By: #### C VDTBH #### [facility] [address] [place] [address] Dr. James Pan Glucose [Mass/Vol] 105 mg/dL Normal [facility] Comment on above: Performed By: #### C VDTBH #### [facility] [address] [place] [address] Dr. James Pan HbA1c (Bld) [Mass fraction] 5.3 % Normal 4.5-6.2 [facility] Comment on above: Performed By: #### C VDTBH #### [facility] [address] [place] [address] Dr. James Pan PROF 14(COMP METB)on 023 Albumin [Mass/Vol] 3.9 g/dL Normal 3.4-5.0 [facility] Comment on above: Performed By: #### U RTPCR #### [facility] [address] [place] [address] Dr. James Pan Albumin/Globulin [Mass ratio] 0.9 {ratio} Normal [facility] Comment on above: Performed By: #### U RTPCR #### [facility] [address] [place] [address] Dr. James Pan ALP [Catalytic activity/Vol] 52 U/L Normal 46-116 [facility] Comment on above: Performed By: #### U RTPCR #### [facility] [address] [address] [address] James Pan ALT [Catalytic activity/Vol] 20 U/L Normal 14-59 [facility] Comment on above: Performed By: #### U RTPCR #### [facility] [address] [address] [address] James Pan Anion gap [Moles/Vol] 13.3 mmol/L Normal [facility] Comment on above: Performed By: #### U RTPCR #### [facility] [address] [address] [address] James Pan AST [Catalytic activity/Vol] 33 U/L Normal 15-37 [facility] Comment on above: Performed By: #### U RTPCR #### [facility] [address] [place] [address] Dr. James Pan Bilirubin [Mass/Vol] 0.5 mg/dL Normal 0.2-1.0 [facility] Comment on above: Performed By: #### U RTPCR #### [facility] [address] [place] [address] Dr. James Pan Calcium [Mass/Vol] 10.1 mg/dL Normal 8.5-10.1 [facility] Comment on above: Performed By: #### U RTPCR #### [facility] [address] [place] [address] Dr. James Pan Chloride [Moles/Vol] 104 mmol/L Normal 98-107 [facility] Comment on above: Performed By: #### U RTPCR #### [facility] [address] [address] [address] James Pan CO2 [Moles/Vol] 29.8 mmol/L Normal 21.0-32.0 [facility] Comment on above: Performed By: #### U RTPCR #### [facility] [address] [address] [address] James Pan Creatinine [Mass/Vol] 1.50 mg/dL Critically high 0.55-1.02 [facility] Comment on above: Performed By: #### U RTPCR #### [facility] [address] [address] [address] James Pan EGFR-AF ECUADOREAN 40 mL/min/1.73m2 Critically low >=60 [facility] Comment on above: Performed By: #### U RTPCR #### [facility] [address] [address] [address] James Pan EGFR-NON AF ECUADOREAN 33 mL/min/1.73m2 Critically low >=60 [facility] Comment on above: Performed By: #### U RTPCR #### [facility] [address] [address] [address] James Pan Globulin (S) [Mass/Vol] 4.2 g/dL Normal [facility] Comment on above: Performed By: #### U RTPCR #### [facility] [address] [place] [address] Dr. James Pan Glucose [Mass/Vol] 84 mg/dL Normal 74-106 [facility] Comment on above: Performed By: #### U RTPCR #### [facility] [address] [address] [address] James Pan Potassium [Moles/Vol] 5.1 mmol/L Normal 3.5-5.1 [facility] Comment on above: Performed By: #### U RTPCR #### [facility] [address] [address] [address] James Pan Protein [Mass/Vol] 8.1 g/dL Normal 6.4-8.2 [facility] Comment on above: Performed By: #### U RTPCR #### [facility] [address] [address] [address] James Pan Sodium [Moles/Vol] 142 mmol/L Normal 136-145 [facility] Comment on above: Performed By: #### U RTPCR #### [facility] [address] [address] [address] James Pan Urea nitrogen [Mass/Vol] 36.0 mg/dL Critically high 7.0-18.0 [facility] Comment on above: Performed By: #### U RTPCR #### [facility] [address] [place] [address] Dr. James Pan Urea nitrogen/Creatinine [Mass ratio] 24.0 mg/mg Normal [facility] Comment on above: Performed By: #### U RTPCR #### [facility] [address] [place] [address] Dr. James Pan TSHon 11-20-2022 TSH 1.427 uIU/mL Normal 0.358-3.740 [facility] Comment on above: Performed By: #### U RTPCR #### [facility] [address] [place] [address] Dr. James Pan URINE T PROTEIN CREAT RATIOo n 11-20-2022 Protein (U) [Mass/Vol] 5.1 mg/dL Normal <=12.0 [facility] Comment on above: Performed By: #### U RTPCR #### [facility] [address] [place] [address] Dr. James Pan UR PROT CREAT RAT 0.14 Normal [facility] Comment on above: Performed By: #### U RTPCR #### [facility] [address] [place] [address] Dr. James Pan URINE CREAT 37.11 mg/dL Normal 20.00-300.00 [facility] Comment on above: Performed By: #### U RTPCR #### [facility] [address] [place] [address] Dr. James Pan PROF CHEM 8 (BAS METB)on Anion gap [Moles/Vol] 11.8 mmol/L Normal [facility] Comment on above: Performed By: #### U RTPCR #### [facility] [address] [place] [address] Dr. James Pan Calcium [Mass/Vol] 8.7 mg/dL Normal 8.5-10.1 [facility] Comment on above: Performed By: #### U RTPCR #### [facility] [address] [place] [address] Dr. James Pan Chloride [Moles/Vol] 102 mmol/L Normal 98-107 [facility] Comment on above: Performed By: #### U RTPCR #### [facility] [address] [place] [address] Dr. James Pan CO2 [Moles/Vol] 30.6 mmol/L Normal 21.0-32.0 [facility] Comment on above: Performed By: #### U RTPCR #### [facility] [address] [place] [address] Dr. James Pan Creatinine [Mass/Vol] 1.53 mg/dL Critically high 0.55-1.02 [facility] Comment on above: Performed By: #### U RTPCR #### [facility] [address] [place] [address] Dr. James Pan EGFR-AF ECUADOREAN 39 mL/min/1.73m2 Critically low >=60 [facility] Comment on above: Performed By: #### U RTPCR #### [facility] [address] [place] [address] Dr. James Pan EGFR-NON AF ECUADOREAN 32 mL/min/1.73m2 Critically low >=60 [facility] Comment on above: Performed By: #### U RTPCR #### [facility] [address] [place] [address] Dr. James Pan Glucose [Mass/Vol] 126 mg/dL Critically high 74-106 [facility] Comment on above: Performed By: #### U RTPCR #### [facility] [address] [place] [address] Dr. James Pan Potassium [Moles/Vol] 4.4 mmol/L Normal 3.5-5.1 [facility] Comment on above: Result Comment: SPEC IMEN SLIGHTLY HEMOLYZED MAY AFFECT K+ RESULT Performed By: #### U RTPCR #### [facility] [address] [place] [address] Dr. James Pan Sodium [Moles/Vol] 140 mmol/L Normal 136-145 [facility] Comment on above: Performed By: #### U RTPCR #### [facility] [address] [place] [address] Dr. James Pan Urea nitrogen [Mass/Vol] 23.0 mg/dL Critically high 7.0-18.0 [facility] Comment on above: Performed By: #### U RTPCR #### [facility] [address] [place] [address] Dr. James Pan Urea nitrogen/Creatinine [Mass ratio] 15.0 mg/mg Normal [facility] Comment on above: Performed By: #### U RTPCR #### [facility] [address] [place] [address] Dr. James Pan BNPon 04-28-2022 Natriuretic peptide B (Bld) [Mass/Vol] 08010.0 pg/mL Critically high <=1,800.0 [facility] Comment on above: Performed By: #### B PRINTING PLATE CLERK, CMP #### [facility] [address] [place] [address] Dr. James Pan CBC AUTO DIFFon 04-28-2022 BASO # 0.0 103/ul Normal 0.0-0.1 [facility] Comment on above: Performed By: #### C BC #### [facility] [address] [place] [address] Dr. James Pan Basophils/100 WBC (Bld) 0.1 % Critically low 0.2-2.0 [facility] Comment on above: Performed By: #### C BC #### [facility] [address] [place] [address] Dr. James Pan EO # 0.0 103/ul Normal 0.0-0.7 [facility] Comment on above: Performed By: #### C BC #### [facility] [address] [place] [address] Dr. James Pan Eosinophils/100 WBC (Bld) 0.0 % Critically low 0.9-7.0 [facility] Comment on above: Performed By: #### C BC #### [facility] [address] [place] [address] Dr. James Pan Erythrocyte distribution width (RBC) [Ratio] 13.9 % Normal 11.0-15.0 [facility] Comment on above: Performed By: #### C BC #### [facility] [address] [address] [address] James Pan Hematocrit (Bld) [Volume fraction] 36.3 % Normal 36.0-48.0 [facility] Comment on above: Performed By: #### C BC #### [facility] [address] [place] [address] Dr. James Pan Hemoglobin (Bld) [Mass/Vol] 11.4 g/dL Critically low 12.0-16.0 [facility] Comment on above: Performed By: #### C BC #### [facility] [address] [place] [address] Dr. James Pan IG # 0.06 10e3/ul Critically high 0.00-0.03 [facility] Comment on above: Performed By: #### C BC #### [facility] [address] [place] [address] Dr. James Pan IG % 0.6 % Critically high 0.0-0.5 [facility] Comment on above: Performed By: #### C BC #### [facility] [address] [place] [address] Dr. James Pan LYMPH # 1.2 103/ul Normal 1.2-3.8 [facility] Comment on above: Performed By: #### C BC #### [facility] [address] [place] [address] Dr. James Pan Lymphocytes/100 WBC (Bld) 12.2 % Critically low 20.5-60.0 [facility] Comment on above: Performed By: #### C BC #### [facility] [address] [place] [address] Dr. James Pan MANUAL DIFF REQ NO Normal [facility] Comment on above: Performed By: #### C BC #### [facility] [address] [place] [address] Dr. James Pan MCH (RBC) [Entitic mass] 30.0 pg Normal 26.7-34.0 [facility] Comment on above: Performed By: #### C BC #### [facility] [address] [address] [address] James Pan MCHC (RBC) [Mass/Vol] 31.4 g/dL Normal 29.9-35.2 [facility] Comment on above: Performed By: #### C BC #### [facility] [address] [address] [address] James Pan MCV (RBC) [Entitic vol] 95.5 fL Normal 81.0-99.0 [facility] Comment on above: Performed By: #### C BC #### [facility] [address] [address] [address] James Pan MONO # 0.3 103/ul Normal 0.3-0.8 [facility] Comment on above: Performed By: #### C BC #### [facility] [address] [place] [address] Dr. James Pan Monocytes/100 WBC (Bld) 2.6 % Normal 1.7-12.0 [facility] Comment on above: Performed By: #### C BC #### [facility] [address] [address] [address] James Pan NEUT # 8.0 103/ul Critically high 1.4-6.5 [facility] Comment on above: Performed By: #### C BC #### [facility] [address] [place] [address] Dr. James Pan Neutrophils/100 WBC (Bld) 84.5 % Critically high 43.0-75.0 [facility] Comment on above: Performed By: #### C BC #### [facility] [address] [address] [address] James Pan Platelet mean volume (Bld) [Entitic vol] 10.4 fL Normal 9.5-13.5 [facility] Comment on above: Performed By: #### C BC #### [facility] [address] [address] [address] James Pan PLT 238 103/ul Normal 150-450 [facility] Comment on above: Performed By: #### C BC #### [facility] [address] [place] [address] Dr. James Pan RBC 3.80 106/ul Critically low 4.20-5.40 [facility] Comment on above: Performed By: #### C BC #### [facility] [address] [place] [address] Dr. James Pan WBC 9.4 103/ul Normal 4.0-11.0 [facility] Comment on above: Performed By: #### C BC #### [facility] [address] [place] [address] Dr. James Pan POINT OF CARE GLUCOSEon 04-14 Glucose [Mass/Vol] 116 mg/dL Critically high 74-106 [facility] Comment on above: Performed By: #### P OCGLUC #### [facility] [address] [place] [address] Dr. James Pan PROF 14(COMP METB)on 022 Albumin [Mass/Vol] 2.6 g/dL Critically low 3.4-5.0 [facility] Comment on above: Performed By: #### B PRINTING PLATE CLERK, CMP #### [facility] [address] [place] [address] Dr. James Pan Albumin/Globulin [Mass ratio] 0.8 {ratio} [facility] Comment on above: Performed By: #### B PRINTING PLATE CLERK, CMP #### [facility] [address] [place] [address] Dr. James Pan ALP [Catalytic activity/Vol] 32 U/L Critically low 46-116 [facility] Comment on above: Performed By: #### B PRINTING PLATE CLERK, CMP #### [facility] [address] [place] [address] Dr. James Pan ALT [Catalytic activity/Vol] 9 U/L Critically low 14-59 [facility] Comment on above: Performed By: #### B PRINTING PLATE CLERK, CMP #### [facility] [address] [place] [address] Dr. James Pan Anion gap [Moles/Vol] 15.6 mmol/L [facility] Comment on above: Performed By: #### B PRINTING PLATE CLERK, CMP #### [facility] [address] [address] [address] James Pan AST [Catalytic activity/Vol] 26 U/L Normal 15-37 [facility] Comment on above: Performed By: #### B PRINTING PLATE CLERK, CMP #### [facility] [address] [address] [address] James Pan Bilirubin [Mass/Vol] 0.2 mg/dL Normal 0.2-1.0 [facility] Comment on above: Performed By: #### B PRINTING PLATE CLERK, CMP #### [facility] [address] [address] [address] James Pan Calcium [Mass/Vol] 8.2 mg/dL Critically low 8.5-10.1 [facility] Comment on above: Performed By: #### B PRINTING PLATE CLERK, CMP #### [facility] [address] [place] [address] Dr. James Pan Chloride [Moles/Vol] 109 mmol/L Critically high 98-107 [facility] Comment on above: Performed By: #### B PRINTING PLATE CLERK, CMP #### [facility] [address] [address] [address] James Pan CO2 [Moles/Vol] 22.4 mmol/L Normal 21.0-32.0 [facility] Comment on above: Performed By: #### B PRINTING PLATE CLERK, CMP #### [facility] [address] [address] [address] James Pan Creatinine [Mass/Vol] 1.42 mg/dL Critically high 0.55-1.02 [facility] Comment on above: Performed By: #### B PRINTING PLATE CLERK, CMP #### [facility] [address] [address] [address] James Pan EGFR-AF ECUADOREAN 43 mL/min/1.73m2 Critically low >=60 [facility] Comment on above: Performed By: #### B PRINTING PLATE CLERK, CMP #### [facility] [address] [address] [address] James Pan EGFR-NON AF ECUADOREAN 35 mL/min/1.73m2 Critically low >=60 [facility] Comment on above: Performed By: #### B PRINTING PLATE CLERK, CMP #### [facility] [address] [place] [address] Dr. James Pan Globulin (S) [Mass/Vol] 3.4 g/dL Normal [facility] Comment on above: Performed By: #### B PRINTING PLATE CLERK, CMP #### [facility] [address] [place] [address] Dr. James Pan Glucose [Mass/Vol] 134 mg/dL Critically high 74-106 [facility] Comment on above: Performed By: #### B PRINTING PLATE CLERK, CMP #### [facility] [address] [place] [address] Dr. James Pan Potassium [Moles/Vol] 4.0 mmol/L Normal 3.5-5.1 [facility] Comment on above: Performed By: #### B PRINTING PLATE CLERK, CMP #### [facility] [address] [place] [address] Dr. James Pan Protein [Mass/Vol] 6.0 g/dL Critically low 6.4-8.2 [facility] Comment on above: Performed By: #### B PRINTING PLATE CLERK, CMP #### [facility] [address] [place] [address] Dr. James Pan Sodium [Moles/Vol] 143 mmol/L Normal 136-145 [facility] Comment on above: Performed By: #### B PRINTING PLATE CLERK, CMP #### [facility] [address] [place] [address] Dr. James Pan Urea nitrogen [Mass/Vol] 48.0 mg/dL Critically high 7.0-18.0 [facility] Comment on above: Performed By: #### B PRINTING PLATE CLERK, CMP #### [facility] [address] [place] [address] Dr. James Pan Urea nitrogen/Creatinine [Mass ratio] 33.8 mg/mg Normal [facility] Comment on above: Performed By: #### B PRINTING PLATE CLERK, CMP #### [facility] [address] [place] [address] Dr. James Pan PROTIMEon 04-28-2022 INR Coag (PPP) [Relative time] 1.66 {INR} Normal [facility] Comment on above: Performed By: #### U RTPCR #### [facility] [address] [place] [address] Dr. James Pan INR GUIDELINES SEE BELOW Normal [facility] Comment on above: Result Comment: BHAVYA RED INR: 2.0 - 3.0 CONDITIONS NOT LISTED BELOW 2.5 - 3.5 FOR PROSTHETIC HEART VALVE REPLACEMENT 2.5 - 3.5 RECURRENT THROMBOSIS Performed By: #### U RTPCR #### [facility] [address] [place] [address] Dr. James Pan PT Coag (PPP) [Time] 17.3 s Critically high 9.0-11.6 [facility] Comment on above: Performed By: #### U RTPCR #### [facility] [address] [place] [address] Dr. James Pan BNPon 04-27-2022 Natriuretic peptide B (Bld) [Mass/Vol] 42626.0 pg/mL Critically high <=1,800.0 [facility] Comment on above: Performed By: #### B PRINTING PLATE CLERK, CMP #### [facility] [address] [place] [address] Dr. James Pan CBC AUTO DIFFon 04-27-2022 BASO # 0.0 103/ul Normal 0.0-0.1 [facility] Comment on above: Performed By: #### C BC #### [facility] [address] [place] [address] Dr. James Pan Basophils/100 WBC (Bld) 0.1 % Critically low 0.2-2.0 [facility] Comment on above: Performed By: #### C BC #### [facility] [address] [place] [address] Dr. James Pan EO # 0.0 103/ul Normal 0.0-0.7 [facility] Comment on above: Performed By: #### C BC #### [facility] [address] [place] [address] Dr. James Pan Eosinophils/100 WBC (Bld) 0.0 % Critically low 0.9-7.0 [facility] Comment on above: Performed By: #### C BC #### [facility] [address] [place] [address] Dr. James Pan Erythrocyte distribution width (RBC) [Ratio] 13.5 % Normal 11.0-15.0 [facility] Comment on above: Performed By: #### C BC #### [facility] [address] [place] [address] Dr. James Pan Hematocrit (Bld) [Volume fraction] 38.0 % Normal 36.0-48.0 [facility] Comment on above: Performed By: #### C BC #### [facility] [address] [place] [address] Dr. James Pan Hemoglobin (Bld) [Mass/Vol] 11.9 g/dL Critically low 12.0-16.0 [facility] Comment on above: Performed By: #### C BC #### [facility] [address] [place] [address] Dr. James Pan IG # 0.03 10e3/ul Normal 0.00-0.03 [facility] Comment on above: Performed By: #### C BC #### [facility] [address] [place] [address] Dr. James Pan IG % 0.4 % Normal 0.0-0.5 [facility] Comment on above: Performed By: #### C BC #### [facility] [address] [place] [address] Dr. James Pan LYMPH # 1.2 103/ul Normal 1.2-3.8 [facility] Comment on above: Performed By: #### C BC #### [facility] [address] [place] [address] Dr. James Pan Lymphocytes/100 WBC (Bld) 14.3 % Critically low 20.5-60.0 [facility] Comment on above: Performed By: #### C BC #### [facility] [address] [place] [address] Dr. James Pan MANUAL DIFF REQ NO Normal [facility] Comment on above: Performed By: #### C BC #### [facility] [address] [address] [address] James Pan MCH (RBC) [Entitic mass] 30.2 pg Normal 26.7-34.0 [facility] Comment on above: Performed By: #### C BC #### [facility] [address] [address] [address] James Pan MCHC (RBC) [Mass/Vol] 31.3 g/dL Normal 29.9-35.2 [facility] Comment on above: Performed By: #### C BC #### [facility] [address] [place] [address] Dr. James Pan MCV (RBC) [Entitic vol] 96.4 fL Normal 81.0-99.0 [facility] Comment on above: Performed By: #### C BC #### [facility] [address] [place] [address] Dr. James Pan MONO # 0.3 103/ul Normal 0.3-0.8 [facility] Comment on above: Performed By: #### C BC #### [facility] [address] [place] [address] Dr. James Pan Monocytes/100 WBC (Bld) 3.0 % Normal 1.7-12.0 [facility] Comment on above: Performed By: #### C BC #### [facility] [address] [place] [address] Dr. James Pan NEUT # 6.8 103/ul Critically high 1.4-6.5 [facility] Comment on above: Performed By: #### C BC #### [facility] [address] [place] [address] Dr. James Pan Neutrophils/100 WBC (Bld) 82.2 % Critically high 43.0-75.0 [facility] Comment on above: Performed By: #### C BC #### [facility] [address] [place] [address] Dr. James Pan Platelet mean volume (Bld) [Entitic vol] 10.2 fL Normal 9.5-13.5 [facility] Comment on above: Performed By: #### C BC #### [facility] [address] [address] [address] James Pan PLT 236 103/ul Normal 150-450 [facility] Comment on above: Performed By: #### C BC #### [facility] [address] [address] [address] James Pan RBC 3.94 106/ul Critically low 4.20-5.40 [facility] Comment on above: Performed By: #### C BC #### [facility] [address] [address] [address] James Pan WBC 8.3 103/ul Normal 4.0-11.0 [facility] Comment on above: Performed By: #### C BC #### [facility] [address] [place] [address] Dr. James Pan POINT OF CARE GLUCOSEon 04-14 Glucose [Mass/Vol] 126 mg/dL Critically high 74-106 [facility] Comment on above: Performed By: #### B PRINTING PLATE CLERK, CMP #### [facility] [address] [place] [address] Dr. James Pan Glucose [Mass/Vol] 60 mg/dL Critically low 74-106 [facility] Comment on above: Performed By: #### B PRINTING PLATE CLERK, CMP #### [facility] [address] [place] [address] Dr. James Pan Glucose [Mass/Vol] 232 mg/dL Critically high 74-106 [facility] Comment on above: Performed By: #### B PRINTING PLATE CLERK, CMP #### [facility] [address] [place] [address] Dr. James Pan PROF 14(COMP METB)on 022 Albumin [Mass/Vol] 2.7 g/dL Critically low 3.4-5.0 [facility] Comment on above: Performed By: #### B PRINTING PLATE CLERK, CMP #### [facility] [address] [place] [address] Dr. James Pan Albumin/Globulin [Mass ratio] 0.8 {ratio} Normal [facility] Comment on above: Performed By: #### B PRINTING PLATE CLERK, CMP #### [facility] [address] [place] [address] Dr. James Pan ALP [Catalytic activity/Vol] 34 U/L Critically low 46-116 [facility] Comment on above: Performed By: #### B PRINTING PLATE CLERK, CMP #### [facility] [address] [address] [address] Jmaes Pan ALT [Catalytic activity/Vol] 11 U/L Critically low 14-59 [facility] Comment on above: Performed By: #### B PRINTING PLATE CLERK, CMP #### [facility] [address] [place] [address] Dr. James Pan Anion gap [Moles/Vol] 13.6 mmol/L Normal [facility] Comment on above: Performed By: #### B PRINTING PLATE CLERK, CMP #### [facility] [address] [place] [address] Dr. James Pan AST [Catalytic activity/Vol] 23 U/L Normal 15-37 [facility] Comment on above: Performed By: #### B PRINTING PLATE CLERK, CMP #### [facility] [address] [place] [address] Dr. James Pan Bilirubin [Mass/Vol] 0.2 mg/dL Normal 0.2-1.0 [facility] Comment on above: Performed By: #### B PRINTING PLATE CLERK, CMP #### [facility] [address] [address] [address] James Pan Calcium [Mass/Vol] 8.3 mg/dL Critically low 8.5-10.1 [facility] Comment on above: Performed By: #### B PRINTING PLATE CLERK, CMP #### [facility] [address] [place] [address] Dr. James Pan Chloride [Moles/Vol] 109 mmol/L Critically high 98-107 [facility] Comment on above: Performed By: #### B PRINTING PLATE CLERK, CMP #### [facility] [address] [place] [address] Dr. James Pan CO2 [Moles/Vol] 23.7 mmol/L Normal 21.0-32.0 [facility] Comment on above: Performed By: #### B PRINTING PLATE CLERK, CMP #### [facility] [address] [place] [address] Dr. James Pan Creatinine [Mass/Vol] 1.42 mg/dL Critically high 0.55-1.02 [facility] Comment on above: Performed By: #### B PRINTING PLATE CLERK, CMP #### [facility] [address] [place] [address] Dr. James Pan EGFR-AF ECUADOREAN 43 mL/min/1.73m2 Critically low >=60 [facility] Comment on above: Performed By: #### B PRINTING PLATE CLERK, CMP #### [facility] [address] [place] [address] Dr. James Pan EGFR-NON AF ECUADOREAN 35 mL/min/1.73m2 Critically low >=60 [facility] Comment on above: Performed By: #### B PRINTING PLATE CLERK, CMP #### [facility] [address] [place] [address] Dr. James Pan Globulin (S) [Mass/Vol] 3.6 g/dL Normal [facility] Comment on above: Performed By: #### B PRINTING PLATE CLERK, CMP #### [facility] [address] [place] [address] Dr. James Pan Glucose [Mass/Vol] 141 mg/dL Critically high 74-106 [facility] Comment on above: Performed By: #### B PRINTING PLATE CLERK, CMP #### [facility] [address] [place] [address] Dr. James Pan Potassium [Moles/Vol] 4.3 mmol/L Normal 3.5-5.1 [facility] Comment on above: Performed By: #### B PRINTING PLATE CLERK, CMP #### [facility] [address] [place] [address] Dr. James Pan Protein [Mass/Vol] 6.3 g/dL Critically low 6.4-8.2 [facility] Comment on above: Performed By: #### B PRINTING PLATE CLERK, CMP #### [facility] [address] [place] [address] Dr. James Pan Sodium [Moles/Vol] 142 mmol/L Normal 136-145 [facility] Comment on above: Performed By: #### B PRINTING PLATE CLERK, CMP #### [facility] [address] [place] [address] Dr. James Pan Urea nitrogen [Mass/Vol] 39.0 mg/dL Critically high 7.0-18.0 [facility] Comment on above: Performed By: #### B PRINTING PLATE CLERK, CMP #### [facility] [address] [place] [address] Dr. James Pan Urea nitrogen/Creatinine [Mass ratio] 27.5 mg/mg Normal [facility] Comment on above: Performed By: #### B PRINTING PLATE CLERK, CMP #### [facility] [address] [place] [address] Dr. James aPn PROTIMEon 04-27-2022 INR Coag (PPP) [Relative time] 1.56 {INR} Normal [facility] Comment on above: Performed By: #### U RTPCR #### [facility] [address] [place] [address] Dr. James Pan INR GUIDELINES SEE BELOW Normal [facility] Comment on above: Result Comment: BHAVYA RED INR: 2.0 - 3.0 CONDITIONS NOT LISTED BELOW 2.5 - 3.5 FOR PROSTHETIC HEART VALVE REPLACEMENT 2.5 - 3.5 RECURRENT THROMBOSIS Performed By: #### U RTPCR #### [facility] [address] [place] [address] Dr. James Pan PT Coag (PPP) [Time] 16.4 s Critically high 9.0-11.6 [facility] Comment on above: Performed By: #### U RTPCR #### [facility] [address] [place] [address] Dr. James Pan BNPon 04-26-2022 Natriuretic peptide B (Bld) [Mass/Vol] 3354.0 pg/mL Critically high <=1,800.0 [facility] Comment on above: Performed By: #### C VDTBH #### [facility] [address] [place] [address] Dr. James Pan CBC AUTO DIFFon 04-26-2022 BASO # 0.0 103/ul Normal 0.0-0.1 [facility] Comment on above: Performed By: #### U RTPCR #### [facility] [address] [place] [address] Dr. James Pan Basophils/100 WBC (Bld) 0.1 % Critically low 0.2-2.0 [facility] Comment on above: Performed By: #### U RTPCR #### [facility] [address] [address] [address] James Pan EO # 0.0 103/ul Normal 0.0-0.7 [facility] Comment on above: Performed By: #### U RTPCR #### [facility] [address] [place] [address] Dr. James Pan Eosinophils/100 WBC (Bld) 0.0 % Critically low 0.9-7.0 [facility] Comment on above: Performed By: #### U RTPCR #### [facility] [address] [place] [address] Dr. James Pan Erythrocyte distribution width (RBC) [Ratio] 13.5 % Normal 11.0-15.0 [facility] Comment on above: Performed By: #### U RTPCR #### [facility] [address] [place] [address] Dr. James Pan Hematocrit (Bld) [Volume fraction] 42.4 % Normal 36.0-48.0 [facility] Comment on above: Performed By: #### U RTPCR #### [facility] [address] [place] [address] Dr. James Pan Hemoglobin (Bld) [Mass/Vol] 13.1 g/dL Normal 12.0-16.0 [facility] Comment on above: Performed By: #### U RTPCR #### [facility] [address] [place] [address] Dr. James Pan IG # 0.02 10e3/ul Normal 0.00-0.03 [facility] Comment on above: Performed By: #### U RTPCR #### [facility] [address] [address] [address] James Pan IG % 0.3 % Normal 0.0-0.5 [facility] Comment on above: Performed By: #### U RTPCR #### [facility] [address] [place] [address] Dr. James Pan LYMPH # 1.4 103/ul Normal 1.2-3.8 [facility] Comment on above: Performed By: #### U RTPCR #### [facility] [address] [place] [address] Dr. James Pan Lymphocytes/100 WBC (Bld) 19.6 % Critically low 20.5-60.0 [facility] Comment on above: Performed By: #### U RTPCR #### [facility] [address] [place] [address] Dr. James Pan MANUAL DIFF REQ NO Normal [facility] Comment on above: Performed By: #### U RTPCR #### [facility] [address] [place] [address] Dr. James Pan MCH (RBC) [Entitic mass] 30.4 pg Normal 26.7-34.0 [facility] Comment on above: Performed By: #### U RTPCR #### [facility] [address] [place] [address] Dr. James Pan MCHC (RBC) [Mass/Vol] 30.9 g/dL Normal 29.9-35.2 [facility] Comment on above: Performed By: #### U RTPCR #### [facility] [address] [place] [address] Dr. James Pan MCV (RBC) [Entitic vol] 98.4 fL Normal 81.0-99.0 [facility] Comment on above: Performed By: #### U RTPCR #### [facility] [address] [place] [address] Dr. James Pan MONO # 0.1 103/ul Critically low 0.3-0.8 [facility] Comment on above: Performed By: #### U RTPCR #### [facility] [address] [place] [address] Dr. James Pan Monocytes/100 WBC (Bld) 1.4 % Critically low 1.7-12.0 [facility] Comment on above: Performed By: #### U RTPCR #### [facility] [address] [place] [address] Dr. James Pan NEUT # 5.6 103/ul Normal 1.4-6.5 [facility] Comment on above: Performed By: #### U RTPCR #### [facility] [address] [place] [address] Dr. James Pan Neutrophils/100 WBC (Bld) 78.6 % Critically high 43.0-75.0 [facility] Comment on above: Performed By: #### U RTPCR #### [facility] [address] [place] [address] Dr. James Pan Platelet mean volume (Bld) [Entitic vol] 10.3 fL Normal 9.5-13.5 [facility] Comment on above: Performed By: #### U RTPCR #### [facility] [address] [place] [address] Dr. James Pan PLT 209 103/ul Normal 150-450 [facility] Comment on above: Performed By: #### U RTPCR #### [facility] [address] [place] [address] Dr. James Pan RBC 4.31 106/ul Normal 4.20-5.40 [facility] Comment on above: Performed By: #### U RTPCR #### [facility] [address] [place] [address] Dr. James Pan WBC 7.1 103/ul Normal 4.0-11.0 [facility] Comment on above: Performed By: #### U RTPCR #### [facility] [address] [place] [address] Dr. James Pan CULTURE URINEon 04-26-2022 CULTURE URINE Culture Observations: No growth Normal [facility] Comment on above: Performed By: #### B PRINTING PLATE CLERK, CMP #### [facility] [address] [place] [address] Dr. James Pan ER URINE PROFILEon 2 Bilirubin Ql (U) Negative Normal NEGATIVE [facility] Comment on above: Performed By: #### Tamiko CANCINO UMICRO #### [facility] [address] [place] [address] Dr. James Pan Clarity (U) CLEAR Normal CLEAR [facility] Comment on above: Performed By: #### Tamiko CANCINO UMICRO #### [facility] [address] [place] [address] Dr. James Pan Color (U) LT. YELLOW Normal YELLOW [facility] Comment on above: Performed By: #### Tamiko CANCINO UMICRO #### [facility] [address] [place] [address] Dr. James BLANC A micrscopic examination will be performed if indicated. Normal [facility] Comment on above: Performed By: #### Tamiko CANCINO UMICRO #### [facility] [address] [place] [address] Dr. James Pan Glucose Ql (U) Negative Normal NEGATIVE [facility] Comment on above: Performed By: #### Tamiko CANCINO UMICRO #### [facility] [address] [place] [address] Dr. James Pan Hemoglobin Ql (U) Negative Normal NEGATIVE [facility] Comment on above: Performed By: #### Tamiko CANCINO UMICRO #### [facility] [address] [place] [address] Dr. James Pan Ketones Ql (U) Negative Normal NEGATIVE [facility] Comment on above: Performed By: #### Tamiok DAVILAR UMICRO #### [facility] [address] [place] [address] Dr. James Pan LEUKOCYTES MODERATE Abnormal NEGATIVE [facility] Comment on above: Performed By: #### Tamiko CANCINO UMICRO #### [facility] [address] [place] [address] Dr. James Pan Nitrite Ql (U) Negative Normal NEGATIVE [facility] Comment on above: Performed By: #### Tamiko RUR, UMICRO #### [facility] [address] [place] [address] Dr. James Pan pH (U) 5.5 [pH] Normal 5-9 [facility] Comment on above: Performed By: #### ROSIE ELLSWORTHRO #### [facility] [address] [place] [address] Dr. James Pan SPEC GRAVITY >=1.030 Abnormal 1.005-<=1.025 [facility] Comment on above: Performed By: #### Tamiko CANCINO UMPRASHANTHRO #### [facility] [address] [place] [address] Dr. James Pan UA PROTEIN Negative Normal NEGATIVE/ TRACE [facility] Comment on above: Performed By: #### ROSIE ELLSWORTHRO #### [facility] [address] [place] [address] Dr. James Pan UR MICRO IND INDICATED Normal [facility] Comment on above: Performed By: #### ROSIE ELLSWORTHRO #### [facility] [address] [place] [address] Dr. James Pan Urobilinogen Qn (U) 0.2 {Kartik'U}/dL Normal 0.2 - 1. 0 [facility] Comment on above: Performed By: #### ROSIE ELLSWORTHRO #### [facility] [address] [place] [address] Dr. James Pan POINT OF CARE GLUCOSEon 04-14 Glucose [Mass/Vol] 182 mg/dL Critically high -106 [facility] Comment on above: Performed By: #### U RTPCR #### [facility] [address] [place] [address] Dr. James Pan Glucose [Mass/Vol] 166 mg/dL Critically high [facility]106 [facility] Comment on above: Performed By: #### U RTPCR #### [facility] [address] [place] [address] Dr. James Pan Glucose [Mass/Vol] 160 mg/dL Critically high -106 [facility] Comment on above: Performed By: #### U RTPCR #### [facility] [address] [address] [address] James Pan Glucose [Mass/Vol] 119 mg/dL Critically high 74-106 T [facility] Comment on above: Performed By: #### B PRINTING PLATE CLERK, CMP #### [facility] [address] [address] [address] James Pan PROF 14(COMP METB)on 022 Albumin [Mass/Vol] 2.8 g/dL Critically low 3.4-5.0 Th [facility] Comment on above: Performed By: #### C VDTBH #### [facility] [address] [address] [address] James Pan Albumin/Globulin [Mass ratio] 0.6 {ratio} [facility] Comment on above: Performed By: #### C VDTBH #### [facility] [address] [place] [address] Dr. James Pan ALP [Catalytic activity/Vol] 38 U/L Critically low 46-116 [facility] Comment on above: Performed By: #### C VDTBH #### [facility] [address] [place] [address] Dr. James Pan ALT [Catalytic activity/Vol] 16 U/L Normal 14-59 [facility] Comment on above: Performed By: #### C VDTBH #### [facility] [address] [place] [address] Dr. James Pan Anion gap [Moles/Vol] 15.6 mmol/L Normal [facility] Comment on above: Performed By: #### C VDTBH #### [facility] [address] [place] [address] Dr. James Pan AST [Catalytic activity/Vol] 37 U/L Normal 15-37 [facility] Comment on above: Performed By: #### C VDTBH #### [facility] [address] [place] [address] Dr. James Pan Bilirubin [Mass/Vol] 0.4 mg/dL Normal 0.2-1.0 [facility] Comment on above: Performed By: #### C VDTBH #### [facility] [address] [address] [address] James Pan Calcium [Mass/Vol] 8.4 mg/dL Critically low 8.5-10.1 [facility] Comment on above: Performed By: #### C VDTBH #### [facility] [address] [address] [address] James Pan Chloride [Moles/Vol] 104 mmol/L Normal 98-107 [facility] Comment on above: Performed By: #### C VDTBH #### [facility] [address] [address] [address] James Pan CO2 [Moles/Vol] 21.6 mmol/L Normal 21.0-32.0 [facility] Comment on above: Performed By: #### C VDTBH #### [facility] [address] [address] [address] James Pan Creatinine [Mass/Vol] 1.39 mg/dL Critically high 0.55-1.02 [facility] Comment on above: Performed By: #### C VDTBH #### [facility] [address] [address] [address] James Pan EGFR-AF ECUADOREAN 44 mL/min/1.73m2 Critically low >=60 [facility] Comment on above: Performed By: #### C VDTBH #### [facility] [address] [address] [address] James Pan EGFR-NON AF ECUADOREAN 36 mL/min/1.73m2 Critically low >=60 [facility] Comment on above: Performed By: #### C VDTBH #### [facility] [address] [address] [address] James Pan Globulin (S) [Mass/Vol] 4.5 g/dL Normal [facility] Comment on above: Performed By: #### C VDTBH #### [facility] [address] [address] [address] James Pan Glucose [Mass/Vol] 149 mg/dL Critically high 74-106 [facility] Comment on above: Performed By: #### C VDTBH #### [facility] [address] [address] [address] James Pan Potassium [Moles/Vol] 5.2 mmol/L Critically high 3.5-5.1 [facility] Comment on above: Result Comment: SPEC IMEN SLIGHTLY HEMOLYZED--DIFFICULT DRAW Performed By: #### C VDTBH #### [facility] [address] [place] [address] Dr. James Pan Protein [Mass/Vol] 7.3 g/dL Normal 6.4-8.2 [facility] Comment on above: Performed By: #### C VDTBH #### [facility] [address] [address] [address] James Pan Sodium [Moles/Vol] 136 mmol/L Normal 136-145 [facility] Comment on above: Performed By: #### C VDTBH #### [facility] [address] [address] [address] James Pan Urea nitrogen [Mass/Vol] 34.0 mg/dL Critically high 7.0-18.0 [facility] Comment on above: Performed By: #### C VDTBH #### [facility] [address] [place] [address] Dr. James Pan Urea nitrogen/Creatinine [Mass ratio] 24.5 mg/mg Normal [facility] Comment on above: Performed By: #### C VDTBH #### [facility] [address] [address] [address] James Pan PROTIMEon 04-26-2022 INR Coag (PPP) [Relative time] 1.51 {INR} Normal [facility] Comment on above: Performed By: #### U RTPCR #### [facility] [address] [place] [address] Dr. James Pan INR GUIDELINES SEE BELOW Normal [facility] Comment on above: Result Comment: BHAVYA RED INR: 2.0 - 3.0 CONDITIONS NOT LISTED BELOW 2.5 - 3.5 FOR PROSTHETIC HEART VALVE REPLACEMENT 2.5 - 3.5 RECURRENT THROMBOSIS Performed By: #### U RTPCR #### [facility] [address] [place] [address] Dr. James Pan PT Coag (PPP) [Time] 15.9 s Critically high 9.0-11.6 [facility] Comment on above: Performed By: #### U RTPCR #### [facility] [address] [place] [address] Dr. James Pan URINE MICROSCOPIC ONLYon BACTERIA TRACE Abnormal NONE SEEN [facility] Comment on above: Performed By: #### E RUR, UMICRO #### [facility] [address] [place] [address] Dr. James Pan Bacteria identified Cx Nom (U) INDICATED Normal [facility] Comment on above: Performed By: #### E RUR, UMICRO #### [facility] [address] [place] [address] Dr. James Pan CAST NONE SEEN Normal NONE SEEN [facility] Comment on above: Performed By: #### E RUR, UMICRO #### [facility] [address] [place] [address] Dr. James Pan Crystals LM Nom (Urine sed) NONE SEEN Normal NONE SEEN [facility] Comment on above: Performed By: #### E RUR, UMICRO #### [facility] [address] [place] [address] Dr. James Pan Epithelial cells LM Ql (Urine sed) FEW Abnormal NONE SEEN /RARE [facility] Comment on above: Performed By: #### E RUR, UMICRO #### [facility] [address] [place] [address] Dr. James Pan MUCOUS NONE SEEN Normal NONE SEEN [facility] Comment on above: Performed By: #### E RUR, UMICRO #### [facility] [address] [place] [address] Dr. James Pan RBC 2-5 Abnormal 0-2 [facility] Comment on above: Performed By: #### E RUR, UMICRO #### [facility] [address] [place] [address] Dr. James Pan WBC 20-50 Abnormal NONE SEEN [facility] Comment on above: Performed By: #### CATHERINE ELLSWORTH #### [facility] [address] [place] [address] Dr. James Pan BNPon 04-25-2022 Natriuretic peptide B (Bld) [Mass/Vol] 3645.0 pg/mL Critically high <=1,800.0 [facility] Comment on above: Performed By: #### C VDTBH #### [facility] [address] [place] [address] Dr. James Pan CBC AUTO DIFFon 04-25-2022 BASO # 0.1 103/ul Normal 0.0-0.1 [facility] Comment on above: Performed By: #### C VDTBH #### [facility] [address] [place] [address] Dr. James Pan Basophils/100 WBC (Bld) 0.4 % Normal 0.2-2.0 [facility] Comment on above: Performed By: #### C VDTBH #### [facility] [address] [place] [address] Dr. James Pan EO # 0.0 103/ul Normal 0.0-0.7 [facility] Comment on above: Performed By: #### C VDTBH #### [facility] [address] [place] [address] Dr. James Pan Eosinophils/100 WBC (Bld) 0.1 % Critically low 0.9-7.0 [facility] Comment on above: Performed By: #### C VDTBH #### [facility] [address] [place] [address] Dr. James Pan Erythrocyte distribution width (RBC) [Ratio] 14.1 % Normal 11.0-15.0 [facility] Comment on above: Performed By: #### C VDTBH #### [facility] [address] [place] [address] Dr. James Pan Hematocrit (Bld) [Volume fraction] 45.1 % Normal 36.0-48.0 [facility] Comment on above: Performed By: #### C VDTBH #### [facility] [address] [address] [address] James Pan Hemoglobin (Bld) [Mass/Vol] 14.1 g/dL Normal 12.0-16.0 [facility] Comment on above: Performed By: #### C VDTBH #### [facility] [address] [address] [address] James Pan IG # 0.04 10e3/ul Critically high 0.00-0.03 [facility] Comment on above: Performed By: #### C VDTBH #### [facility] [address] [place] [address] Dr. James Pan IG % 0.3 % Normal 0.0-0.5 [facility] Comment on above: Performed By: #### C VDTBH #### [facility] [address] [place] [address] Dr. James Pan LYMPH # 1.5 103/ul Normal 1.2-3.8 [facility] Comment on above: Performed By: #### C VDTBH #### [facility] [address] [place] [address] Dr. James Pan Lymphocytes/100 WBC (Bld) 13.0 % Critically low 20.5-60.0 [facility] Comment on above: Performed By: #### C VDTBH #### [facility] [address] [place] [address] Dr. James Pan MANUAL DIFF REQ NO Normal [facility] Comment on above: Performed By: #### C VDTBH #### [facility] [address] [place] [address] Dr. James Pan MCH (RBC) [Entitic mass] 30.1 pg Normal 26.7-34.0 [facility] Comment on above: Performed By: #### C VDTBH #### [facility] [address] [place] [address] Dr. James Pan MCHC (RBC) [Mass/Vol] 31.3 g/dL Normal 29.9-35.2 [facility] Comment on above: Performed By: #### C VDTBH #### [facility] [address] [place] [address] Dr. James Pan MCV (RBC) [Entitic vol] 96.4 fL Normal 81.0-99.0 [facility] Comment on above: Performed By: #### C VDTBH #### [facility] [address] [place] [address] Dr. James Pan MONO # 1.2 103/ul Critically high 0.3-0.8 [facility] Comment on above: Performed By: #### C VDTBH #### [facility] [address] [place] [address] Dr. James Pan Monocytes/100 WBC (Bld) 10.8 % Normal 1.7-12.0 [facility] Comment on above: Performed By: #### C VDTBH #### [facility] [address] [place] [address] Dr. James Pan NEUT # 8.6 103/ul Critically high 1.4-6.5 [facility] Comment on above: Performed By: #### C VDTBH #### [facility] [address] [place] [address] Dr. James Pan Neutrophils/100 WBC (Bld) 75.4 % Critically high 43.0-75.0 [facility] Comment on above: Performed By: #### C VDTBH #### [facility] [address] [place] [address] Dr. James Pan Platelet mean volume (Bld) [Entitic vol] 10.2 fL Normal 9.5-13.5 [facility] Comment on above: Performed By: #### C VDTBH #### [facility] [address] [place] [address] Dr. James Pan PLT 265 103/ul Normal 150-450 [facility] Comment on above: Performed By: #### C VDTBH #### [facility] [address] [place] [address] Dr. James Pan RBC 4.68 106/ul Normal 4.20-5.40 [facility] Comment on above: Performed By: #### C VDTBH #### [facility] [address] [place] [address] Dr. James Pan WBC 11.5 103/ul Critically high 4.0-11.0 [facility] Comment on above: Performed By: #### C VDTBH #### [facility] [address] [place] [address] Dr. James Pan Covid-19 PCR ([facility])on 04-14 SARS-CoV-2 (COVID-19) RNA AUDREY+probe Ql (Unsp spec) Detected Critically abnormal NOT DETECTED [facility] Comment on above: Result Comment: This test is not yet approved or cleared by the [place] FDA. When there are no FDA-approved or cleared tests available, and other criteria are met, FDA can make tests available under an emergency access mechanism called an Emergency Use Authorization (EUA). The EUA for this test is supported by the [employer] of Health and Human Service's declaration that circumstances exist to justify the emergency use of in vitro diagnostics for the detection and/or diagnosis of the virus that causes COVID-19. This EUA will remain in effect for the duration of the COVID-19 declaration justifying emergency of IVDs, unless it is terminated or revoked by the FDA (after which the test may no longer be used). Performed By: #### C VDTBH #### [facility] [address] [place] [address] Dr. James Pan LACTATE/LACTIC ACIDon 2021 Lactate [Moles/Vol] 0.7 mmol/L Normal 0.4-1.9 [facility] Comment on above: Performed By: #### B PRINTING PLATE CLERK, CMP #### [facility] [address] [place] [address] Dr. James Pan Lactate [Moles/Vol] 3.2 mmol/L Critically high 0.4-1.9 [facility] Comment on above: Performed By: #### C VDTBH #### [facility] [address] [place] [address] Dr. James Pan PROF 14(COMP METB)on 022 Albumin [Mass/Vol] 2.9 g/dL Critically low 3.4-5.0 [facility] Comment on above: Performed By: #### C VDTBH #### [facility] [address] [place] [address] Dr. James Pan Albumin/Globulin [Mass ratio] 0.8 {ratio} Normal [facility] Comment on above: Performed By: #### C VDTBH #### [facility] [address] [place] [address] Dr. James Pan ALP [Catalytic activity/Vol] 37 U/L Critically low 46-116 [facility] Comment on above: Performed By: #### C VDTBH #### [facility] [address] [place] [address] Dr. James Pan ALT [Catalytic activity/Vol] 9 U/L Critically low 14-59 [facility] Comment on above: Performed By: #### C VDTBH #### [facility] [address] [address] [address] James Pan Anion gap [Moles/Vol] 17.8 mmol/L Normal [facility] Comment on above: Performed By: #### C VDTBH #### [facility] [address] [place] [address] Dr. James Pan AST [Catalytic activity/Vol] 27 U/L Normal 15-37 [facility] Comment on above: Performed By: #### C VDTBH #### [facility] [address] [address] [address] James Pan Bilirubin [Mass/Vol] 0.4 mg/dL Normal 0.2-1.0 [facility] Comment on above: Performed By: #### C VDTBH #### [facility] [address] [place] [address] Dr. James Pan Calcium [Mass/Vol] 8.4 mg/dL Critically low 8.5-10.1 Th [facility] Comment on above: Performed By: #### C VDTBH #### [facility] [address] [address] [address] James Pan Chloride [Moles/Vol] 105 mmol/L Normal 98-107 [facility] Comment on above: Performed By: #### C VDTBH #### [facility] [address] [place] [address] Dr. James Pan CO2 [Moles/Vol] 26.2 mmol/L Normal 21.0-32.0 [facility] Comment on above: Performed By: #### C VDTBH #### [facility] [address] [place] [address] Dr. James Pan Creatinine [Mass/Vol] 1.85 mg/dL Critically high 0.55-1.02 [facility] Comment on above: Performed By: #### C VDTBH #### [facility] [address] [place] [address] Dr. James Pan EGFR-AF ECUADOREAN 32 mL/min/1.73m2 Critically low >=60 [facility] Comment on above: Performed By: #### C VDTBH #### [facility] [address] [place] [address] Dr. James Pan EGFR-NON AF ECUADOREAN 26 mL/min/1.73m2 Critically low >=60 [facility] Comment on above: Performed By: #### C VDTBH #### [facility] [address] [place] [address] Dr. James Pan Globulin (S) [Mass/Vol] 3.7 g/dL Normal [facility] Comment on above: Performed By: #### C VDTBH #### [facility] [address] [place] [address] Dr. James Pan Glucose [Mass/Vol] 112 mg/dL Critically high 74-106 T [facility] Comment on above: Performed By: #### C VDTBH #### [facility] [address] [place] [address] Dr. James Pan Potassium [Moles/Vol] 5.2 mmol/L Critically high 3.5-5.1 [facility] Comment on above: Performed By: #### C VDTBH #### [facility] [address] [address] [address] James Pan Protein [Mass/Vol] 6.6 g/dL Normal 6.4-8.2 [facility] Comment on above: Performed By: #### C VDTBH #### [facility] [address] [address] [address] James Pan Sodium [Moles/Vol] 139 mmol/L Normal 136-145 [facility] Comment on above: Performed By: #### C VDTBH #### [facility] [address] [address] [address] James Pan Urea nitrogen [Mass/Vol] 36.0 mg/dL Critically high 7.0-18.0 [facility] Comment on above: Performed By: #### C VDTBH #### [facility] [address] [address] [address] James Pan Urea nitrogen/Creatinine [Mass ratio] 19.5 mg/mg Normal [facility] Comment on above: Performed By: #### C VDTBH #### [facility] [address] [address] [address] James Pan TROPONIN, HIGH SENSITIVITYon 04-25-2022 HSTROP 18.1 pg/mL Normal 4.0-51.3 [facility] Comment on above: Result Comment: CUT- OFF POINTS HAVE BEEN ESTABLISHED BASED ON THE FOURTH UNIVERSAL DEFINITIONS OF MYOCARDIAL INFARCTION. THE UPPER REFERENCE LIMIT (URL) OF TROPONIN, DEFINED THE 99TH PERCENTILE OF cTnI DISTRIBUTION IN A REFERENCE POPULATION, HAS BEEN CONFIRMED THE DECISION THRESHOLD FOR [place] DIAGNOSIS. Performed By: #### C VDTBH #### [facility] [address] [place] [address] Dr. James Pan XR CHEST 1 Von 04-25-2022 XR CHEST 1 V EXAM: XR CHEST 1 V HISTORY: COUGH COMPARISON: Chest x-ray 01/28/2022. TECHNIQUE: Portable chest FINDINGS: Again demonstrated is the large hiatal hernia. The lung parenchyma exhibits no discrete consolidation or infiltrate. No pneumothorax or pleural effusion. Stable right parenchymal calcified granuloma. Left-sided cardiac pacemaker. IMPRESSION: No gross visualized acute abnormality Electronically authenticated by: CATHY STEINBERG Date: 2022-04-25 19:00 Normal [facility] ECHOCARDIO M/2D COMPLETEon 0 03-21-2022 ECHOCARDIO M/2D COMPLETE Patient: EUNICE THACKER Exam Date: 03/21/2022 : 1940 Gender:F Ordering : ERIC Baum CHACKO Admission #: [id number] Family : SHAIKH Raza COSTA . Order #: [id number] CLICK HERE TO VIEW EXAM ECHOCARDIOGRAM REPORT PROCEDURE: CARDIO PULMONARY ECHOCARDIO M/2D COMP INDICATIONS: Paroxysmal atrial fibrillation, pacemaker COMPARISON: None. DESCRIPTION: COMPLETE ECHOCARDIOGRAM Real-time transthoracic echocardiography with 2D, M-mode, spectral and color flow Doppler performed. QUALITY: Technical quality was good. 61 134# BP 130/66 HR 70 LEFT VENTRICLE: Normal chamber size. Mild concentric left ventricular hypertrophy. Systolic function is mildly reduced. LV EF: Mildly reduced left ventricular ejection fraction, (45-50%). DIASTOLIC: Diastolic function is indeterminate. ATRIAL SEPTUM: Visually appears intact. LEFT ATRIUM: Severe dilatation. RIGHT ATRIUM: Severe dilatation. RIGHT VENTRICLE: Moderate dilatation. Systolic function is mildly reduced. Pacer wire present. TRICUSPID VALVE: Normal mobility and thickness. No stenosis with moderate regurgitation. Doppler studies reveal moderately (45-60) elevated right sided pressures. RVSP 51 mmHg MITRAL VALVE: Normal mobility and thickness. No evidence of mitral valve stenosis. Mild mitral annular calcification. Mild mitral regurgitation. AORTIC VALVE: Normal trileaflet appearance. Mildly calcified aortic valve. Normal leaflet mobility. No evidence of aortic valve stenosis. Mild to moderate aortic regurgitation. AORTIC ROOT: Normal diameter and appearance. PULMONIC VALVE: Normal thickness and mobility. No stenosis. Trivial regurgitation. PERICARDIUM: No evidence of pericardial effusion. IVC: Dilated IVC (2.3 cm) with no collapse. PLEURA: CONCLUSION: 1. Mild concentric left ventricular hypertrophy with diffuse global hypokinesis and mildly reduced systolic function. LVEF is 45 to 50%. 2. Moderately dilated right ventricle with mildly reduced systolic function. 3. Severe biatrial dilatation. 4. Mild to moderate aortic regurgitation. 5. Moderate tricuspid regurgitation. 6. Mild mitral regurgitation. 7. Moderately elevated right-sided pressures. RVSP is 51 mmHg. Dictated by: Jonathan Mosley M.D. on 03/24/2022 at 09:12 Approved by: Jonathan Mosley M.D. on 03/24/2022 at 09:19 Normal [facility] BASIC METABOLIC PANELon 06-1 Calcium [Mass/Vol] 8.8 mg/dL Normal 8.6-10.3 [facility] Comment on above: Order Comment: No: D o not add to previous draw Performed By: #### 1 0070, 11800, 35452 #### [facility] [address] [place] [address], [place] Chloride [Moles/Vol] 107 mmol/L Normal 98-107 [facility] Comment on above: Order Comment: No: D o not add to previous draw Performed By: #### 1 0070, 96291, 54820 #### [facility] [address] [place] [address], [place] CO2 [Moles/Vol] 23 mmol/L Normal 21-31 [facility] Comment on above: Order Comment: No: D o not add to previous draw Performed By: #### 1 0070, 94755, 27541 #### [facility] [address] [place] [address], [place] Creatinine [Mass/Vol] 1.34 mg/dL High 0.60-1.20 [facility] Comment on above: Order Comment: No: D o not add to previous draw Performed By: #### 1 0070, 87709, 29165 #### [facility] [address] [place] [address], [place] eGFR- 46 ml/min/1.73sq m Abnormal >60 [facility] Comment on above: Order Comment: No: D o not add to previous draw Result Comment: Calc ulation may not be valid for patients over 70 years Performed By: #### 1 0070, 73927, 17170 #### [facility] [address] [place] [address], [place] eGFR- non- 38 ml/min/1.73sq m Abnormal >60 [facility] Comment on above: Order Comment: No: D o not add to previous draw Result Comment: Calc ulation may not be valid for patients over 70 years Performed By: #### 1 0070, 83901, 31975 #### [facility] [address] [place] [address], [place] Glucose [Mass/Vol] 85 mg/dL Normal 70-100 [facility] Comment on above: Order Comment: No: D o not add to previous draw Performed By: #### 1 0070, 27893, 22712 #### [facility] [address] [place] [address], [place] Potassium [Moles/Vol] 4.3 mmol/L Normal 3.5-5.1 [facility] Comment on above: Order Comment: No: D o not add to previous draw Performed By: #### 1 0070, 33023, 08092 #### [facility] [address] [place] [address], [place] Sodium [Moles/Vol] 140 mmol/L Normal 136-145 [facility] Comment on above: Order Comment: No: D o not add to previous draw Performed By: #### 1 0070, 85287, 34514 #### [facility] [address] [place] [address], [place] Urea nitrogen [Mass/Vol] 51 mg/dL High 7-25 [facility] Comment on above: Order Comment: No: D o not add to previous draw Performed By: #### 1 0070, 02459, 75697 #### [facility] [address] [place] [address], [place] PORTABLE CHEST 1 VIEWon 06- PORTABLE CHEST 1 VIEW [facility] Department of Radiology [address] [place] [id number] Patient Name: EUNICE THACKER : 1940 Sex: F Age: Race: White Pt. Location: [address] [place] [address] Patient Status: I Ordered Date: 02/21/2022 5:00:00 AM Completed Date: 02/21/2022 07:21 AM Requesting Provider: BERNIE BLANCO Attending Provider: CHANNING RUSH Report Copy To: Signs & Symptoms: Atelectasis History: Comments: Evaluate for Atelectasis Exam: PORTABLE CHEST 1 VIEW PORTABLE CHEST 1 VIEW 02/21/2022 7:21 AM CLINICAL INDICATIONS: Atelectasis TECHNOLOGIST COMMENTS: dyspnea follow up QUESTION FOR THE RADIOLOGIST: Evaluate for Atelectasis PROTOCOL: AP(PA) view was obtained. COMPARISON: February 20, 2022. FINDINGS: Cardiomegaly, sternotomy wires and AICD/pacemaker device remain. No focal infiltrate, effusion or pneumothorax is noted. IMPRESSION: No acute cardiopulmonary process. Electronically signed: Joe Mi. Transcribed by: [email or web address], User Resident: Electronically Signed by: JOE MI @ 02/21/2022 08:37 AM Normal [facility] Comment on above: Order Comment: No: D o not add to previous draw APTTon 02-20-2022 aPTT Coag (Bld) [Time] 33.9 s Normal 25.0-35.0 [facility] Comment on above: Order Comment: No: D o not add to previous draw Result Comment: ALL RESULTS MUST BE INTERPRETED WITH RESPECT TO BLOOD DRAWING ARTIFACT OR DILUTION ERROR OF ANTICOAGULANT AT THE TIME OF SAMPLING. THE APTT SHOULD NOT BE USED TO MONITOR UNFRACTIONATED HEPARIN THERAPY, THIS LABORATORY NO LONGER HAS AN ESTABLISHED THERAPEUTIC RANGE BASED ON THE APTT. IT IS RECOMMENDED THAT THE UFH - HEPARIN ASSAY (ANTI-XA ACTIVITY) BE USED FOR THIS PURPOSE. Performed By: #### 1 0070, 62961, 56195 #### [facility] [address] [place] [id number], [facility] BASIC METABOLIC PANELon 06-0 9-2021 Calcium [Mass/Vol] 9.1 mg/dL Normal 8.6-10.3 [facility] Comment on above: Order Comment: post op day 1 No: Do not add to previous draw Performed By: #### 0 0071, 22368, 48664 #### [facility] [address] [place] [id number], [facility] Chloride [Moles/Vol] 105 mmol/L Normal 98-107 [facility] Comment on above: Order Comment: post op day 1 No: Do not add to previous draw Performed By: #### 0 0071, 88633, 11505 #### [facility] [address] [place] [address], [facility] CO2 [Moles/Vol] 26 mmol/L Normal 21-31 [facility] Comment on above: Order Comment: post op day 1 No: Do not add to previous draw Performed By: #### 0 0071, 90163, 14643 #### [facility] [address] [place] [id number], [facility] Creatinine [Mass/Vol] 1.73 mg/dL High 0.60-1.20 [facility] Comment on above: Order Comment: post op day 1 No: Do not add to previous draw Performed By: #### 0 0071, 20091, 66666 #### [facility] [address] [place] [address], [facility] eGFR- 34 ml/min/1.73sq m Abnormal >60 [facility] Comment on above: Order Comment: post op day 1 No: Do not add to previous draw Result Comment: Calc ulation may not be valid for patients over 70 years Performed By: #### 0 0071, 89500, 69454 #### [facility] [address] [place] [address], [place] eGFR- non- 28 ml/min/1.73sq m Abnormal >60 [facility] Comment on above: Order Comment: post op day 1 No: Do not add to previous draw Result Comment: Calc ulation may not be valid for patients over 70 years Performed By: #### 0 0071, 67720, 18878 #### [facility] [address] [place] [address], [place] Glucose [Mass/Vol] 102 mg/dL High 70-100 [facility] Comment on above: Order Comment: post op day 1 No: Do not add to previous draw Performed By: #### 0 0071, 31690, 53921 #### [facility] [address] [place] [address], [place] Potassium [Moles/Vol] 4.5 mmol/L Normal 3.5-5.1 [facility] Comment on above: Order Comment: post op day 1 No: Do not add to previous draw Performed By: #### 0 0071, 89485, 44016 #### [facility] [address] [place] [address], [place] Sodium [Moles/Vol] 141 mmol/L Normal 136-145 [facility] Comment on above: Order Comment: post op day 1 No: Do not add to previous draw Performed By: #### 0 0071, 65990, 13772 #### [facility] [address] [place] [address], [place] Urea nitrogen [Mass/Vol] 51 mg/dL High 7-25 [facility] Comment on above: Order Comment: post op day 1 No: Do not add to previous draw Performed By: #### 0 0071, 46746, 89140 #### [facility] [address] [place] [address], [facility] CBC COMPLETE BLOOD COUNTon 0 02-20-2022 Erythrocyte distribution width (RBC) [Ratio] 14.6 % Normal 11.5-15.0 [facility] Comment on above: Order Comment: No: D o not add to previous draw Performed By: #### 1 0070, 86576, 83578 #### [facility] [address] [place] [address], [facility] Hematocrit (Bld) [Volume fraction] 39.6 % Normal 36.0-45.0 [facility] Comment on above: Order Comment: No: D o not add to previous draw Performed By: #### 1 0070, 76234, 42263 #### [facility] [address] [place] [address], [facility] Hemoglobin (Bld) [Mass/Vol] 12.7 g/dL Normal 12.0-15.0 [facility] Comment on above: Order Comment: No: D o not add to previous draw Performed By: #### 1 0070, 47972, 82588 #### [facility] [address] [place] [address], [facility] MCH (RBC) [Entitic mass] 30.2 pg Normal 27.0-33.0 [facility] Comment on above: Order Comment: No: D o not add to previous draw Performed By: #### 1 0070, 19243, 05242 #### [facility] [address] [place] [address], [place] MCHC (RBC) [Mass/Vol] 32.1 g/dL Normal 32.0-35.0 [facility] Comment on above: Order Comment: No: D o not add to previous draw Performed By: #### 1 0070, 92706, 84424 #### [facility] [address] [place] [address], [place] MCV (RBC) [Entitic vol] 94.3 fL Normal 82.0-98.0 [facility] Comment on above: Order Comment: No: D o not add to previous draw Performed By: #### 1 0070, 68675, 20182 #### [facility] [address] [place] [address], [facility] Nucleated RBC/100 WBC (Bld) [Ratio] 0 % Normal 0-0 [facility] Comment on above: Order Comment: No: D o not add to previous draw Performed By: #### 1 0070, 06960, 51415 #### [facility] [address] [place] [address], [facility] PLAT CNT 171 10*3/uL Normal 150-400 [facility] Comment on above: Order Comment: No: D o not add to previous draw Performed By: #### 1 0070, 01926, 83334 #### [facility] [address] [facility] [place] [address], [facility] RBC (Bld) [#/Vol] 4.20 10*6/uL Normal 3.80-5.00 [facility] Comment on above: Order Comment: No: D o not add to previous draw Performed By: #### 1 0070, 31668, 63697 #### [facility] [address] [place] [address], [facility] WBC (Bld) [#/Vol] 9.88 10*3/uL Normal 4.00-10.60 [facility] Comment on above: Order Comment: No: D o not add to previous draw Performed By: #### 1 0070, 84601, 24213 #### [facility] [address] [place] [address], [facility] MAGNESIUM BLOODon 02-20-2022 Magnesium [Mass/Vol] 2.1 mg/dL Normal 1.9-2.7 [facility] Comment on above: Order Comment: No: D o not add to previous draw Performed By: #### 0 0071, 65895, 67265 #### [facility] [address] [place], [place] [address] Operative Reporton 2 Operative Report MR#: [id number] # [facility] Pt. Name: Eunice Thacker Room #: [id number] Discharge Date: Birthdate: 1940 OPERATIVE REPORT DATE OF SURGERY: 02/19/2022 SURGEON: Channing Rush MD PREOPERATIVE DIAGNOSIS: Inability to place left ventricular lead percutaneously. POSTOPERATIVE DIAGNOSIS: Inability to place left ventricular lead percutaneously. OPERATIONS: Left mini thoracotomy and epicardial LV lead placement x2. Extra complexity because of previous coronary artery bypass grafting surgery making lot of dense adhesions between the heart and the pericardium adding to the complexity and time duration of the case. EQUIPMENT SERVICE ASSOCIATE: Dr. Hernandez. ANESTHESIA: General with double-lumen endotracheal intubation. ANESTHESIOLOGIST: Dr. Flores. INDICATIONS: This is an 81-year-old female with an AICD post coronary artery bypass grafting. The patient had malfunction of the RV lead and LV lead was replaced with very much difficulty. The old RV lead was capped and because of the need for biventricular pacing and because of worsening heart failure, the patient was referred to nm for epicardial LV lead placement. The AICD generator had already been changed before. PROCEDURE IN DETAIL: Patient brought to the operating room and prepped and draped in the routine fashion. The left chest elevated 30 degrees. Incision was made in the left breast and chest was entered through the 5th intercostal space. Likely, the lung was not adherent much to the pericardium. Pericardium was carefully incised open and then extended with a combination of blunt and sharp dissection. With much care and diligence, we were able to peel off the epicardium from the left ventricular cavity. Two epicardial LV leads made by [employer] were implanted. The lead parameters were tested and found to be adequate. Previous AICD pocket in the left upper chest was reopened and the device was delivered through the pocket. The generator was and the 2 epicardial leads were tunneled through and through 1 interspace above the incision into the lead cavity. The lead with the best parameters was connected to the lead to the AICD and the other 1 was capped and the device was replaced back in the pocket. The pocket was closed in layers using 3-0 Vicryl and 4-0 Monocryl subcuticular stitches. Final details of the implanted hardware is mentioned below and a Ammon drain was placed in the chest and chest was closed with #2 pericostal and #1 Vicryl fascial, 2-0 Vicryl for Monocryl stitches. The implanted lead grade [employer] model #591584, serial #[id number]. This was capped. The second lead 28133, model number and serial number is [id number] was connected to the device. It had a sensitivity of 0.6 mV and output of 3.5 V at 0.4 milliseconds. Pacing threshold was 1.2 V at 0.4 millisecond with the impedance of 849 ohms. The other lead had a pacing threshold of just under 2 V. The patient tolerated the procedure well, was extubated, and taken to the recovery room in a stable condition. Electronically Signed by: Channing Rush MD 02/21/2022 10:20 A Channing Rush MD Date Dict: 02/19/2022/06:15 P/Channing Rush MD Date Trans: 02/19/2022 10:27 P/mmo [id number] Normal [facility] PHOSPHORUS BLOODon 2 Phosphate [Mass/Vol] 5.5 mg/dL High 2.5-5.0 [facility] Comment on above: Order Comment: No: D o not add to previous draw Performed By: #### 0 0071, 48637, 52989 #### [place] [address], [facility] PORTABLE CHEST 1 VIEWon PORTABLE CHEST 1 VIEW [facility] Department of Radiology [address] [place] [id number] Patient Name: EUNICE THACKER : 1940 Sex: F Age: Race: White Pt. Location: [id number] Patient Status: I Ordered Date: 02/20/2022 3:55:00 PM Completed Date: 02/20/2022 04:53 PM Requesting Provider: BERNIE BLANCO Attending Provider: CHANNING RUSH Report Copy To: Signs & Symptoms: Post Chest Tube Removal History: Comments: Pneumothorax Exam: PORTABLE CHEST 1 VIEW PORTABLE CHEST 1 VIEW 02/20/2022 4:53 PM CLINICAL INDICATIONS: Post Chest Tube Removal TECHNOLOGIST COMMENTS: Post Chest Tube Removal QUESTION FOR THE RADIOLOGIST: Pneumothorax PROTOCOL: AP(PA) view was obtained. COMPARISON: 02/20/2022 FINDINGS: An AICD is present. There is cardiac prominence and aortic tortuosity with vascular distention centrally. Vascular margins are indistinct. There is no visible infiltrate peripherally. No pneumothorax or pleural effusion is present. IMPRESSION: Mild vascular congestion. No focal infiltrate. Electronically signed: Yohan Rahman. Transcribed by: [email or web address], User Resident: Electronically Signed by: YOHAN RAHMAN @ 02/20/2022 05:26 PM Normal [facility] Comment on above: Order Comment: No: D o not add to previous draw PORTABLE CHEST 1 VIEW [facility] Department of Radiology [address] [place] [id number] Patient Name: EUNICE THACKER : 1940 Sex: F Age: Race: White Pt. Location: [id number] Patient Status: I Ordered Date: 02/20/2022 5:00:00 AM Completed Date: 02/20/2022 07:35 AM Requesting Provider: BERNIE BLANCO Attending Provider: CHANNING RUSH Report Copy To: Signs & Symptoms: Post Pacemaker/AICD Placement History: Comments: evaluate for Pneumothorax Exam: PORTABLE CHEST 1 VIEW PORTABLE CHEST 1 VIEW 02/20/2022 7:35 AM CLINICAL INDICATIONS: Post Pacemaker/AICD Placement TECHNOLOGIST COMMENTS: left side chest tube QUESTION FOR THE RADIOLOGIST: evaluate for Pneumothorax PROTOCOL: AP(PA) view was obtained. COMPARISON: February 19, 2022. FINDINGS: Pacemaker/AICD device, sternotomy wires and cardiomegaly are again noted. What appears to be a left-sided chest tube is partially obscured by the pacemaker battery pack. No pneumothorax is identified. Lungs appear clear. IMPRESSION: No pneumothorax appreciated. Electronically signed: Joe Mi. Transcribed by: [id number], User Resident: Electronically Signed by: JOE MI @ 02/20/2022 08:01 AM Normal [facility] Comment on above: Order Comment: No: D o not add to previous draw PROTHROMBIN TIMEon INR Coag (PPP) [Relative time] 1.15 {INR} Normal 0.91-1.16 [facility] Comment on above: Order Comment: No: D o not add to previous draw Result Comment: ACCC P RECOMMENDED INR FOR WARFARIN THERAPY ------- ------- CONDITION INR PROPHYLAXIS OF VENOUS THROMBOSIS 2-3 (HIGH-RISK SURGERY) TREATMENT OF VENOUS THROMBOSIS 2-3 TREATMENT OF PULMONARY EMBOLISM 2-3 PREVENTION OF SYSTEMIC EMBOLISM: 2-3 ACUTE MYOCARDIAL INFARCTION TISSUE HEART VALVES VALVULAR HEART DISEASE ATRIAL FIBRILLATION RECURRENT SYSTEMIC EMBOLISM MECHANICAL HEART VALVE 2.5-3.5 FROM: ORAL ANTICOAGULANTS. MECHANISM OF ACTION, CLINICAL EFFECTIVENESS, AND OPTIMAL THERAPEUTIC RANGE. CHEST 1995;108:231S-246S. Performed By: #### 1 0070, 34859, 66701 #### [facility] [address] PT Coag (PPP) [Time] 14.7 s Normal 12.3-14.8 [facility] Comment on above: Order Comment: No: D o not add to previous draw Result Comment: ALL RESULTS MUST BE INTERPRETED WITH RESPECT TO BLOOD DRAWING ARTIFACT OR DILUTION ERROR OF ANTICOAGULANT AT THE TIME OF SAMPLING. Performed By: #### 1 0070, 25894, 58421 #### [facility] [address] APTTon 02-19-2022 aPTT Coag (Bld) [Time] 30.6 s Normal 25.0-35.0 [facility] Comment on above: Order Comment: No: D o not add to previous draw Result Comment: ALL RESULTS MUST BE INTERPRETED WITH RESPECT TO BLOOD DRAWING ARTIFACT OR DILUTION ERROR OF ANTICOAGULANT AT THE TIME OF SAMPLING. THE APTT SHOULD NOT BE USED TO MONITOR UNFRACTIONATED HEPARIN THERAPY, THIS LABORATORY NO LONGER HAS AN ESTABLISHED THERAPEUTIC RANGE BASED ON THE APTT. IT IS RECOMMENDED THAT THE UFH - HEPARIN ASSAY (ANTI-XA ACTIVITY) BE USED FOR THIS PURPOSE. Performed By: #### 1 0070, 33990, 56234 #### [facility] [address] [place] [address], [facility] aPTT Coag (Bld) [Time] 31.1 s Normal 25.0-35.0 [facility] Comment on above: Result Comment: ALL RESULTS MUST BE INTERPRETED WITH RESPECT TO BLOOD DRAWING ARTIFACT OR DILUTION ERROR OF ANTICOAGULANT AT THE TIME OF SAMPLING. THE APTT SHOULD NOT BE USED TO MONITOR UNFRACTIONATED HEPARIN THERAPY, THIS LABORATORY NO LONGER HAS AN ESTABLISHED THERAPEUTIC RANGE BASED ON THE APTT. IT IS RECOMMENDED THAT THE UFH - HEPARIN ASSAY (ANTI-XA ACTIVITY) BE USED FOR THIS PURPOSE. Performed By: #### 3 1791 #### [facility] [address] [place] [address], [facility] BASIC METABOLIC PANELon 06-0 -2021 Calcium [Mass/Vol] 9.0 mg/dL Normal 8.6-10.3 [facility] Comment on above: Order Comment: No: D o not add to previous draw Performed By: #### 1 0070, 19287, 08786 #### [facility] [address] [place] [id number], [facility] Chloride [Moles/Vol] 103 mmol/L Normal 98-107 [facility] Comment on above: Order Comment: No: D o not add to previous draw Performed By: #### 1 0, , 99190 #### [facility] [address] [place] [address], [facility] CO2 [Moles/Vol] 26 mmol/L Normal 21-31 [facility] Comment on above: Order Comment: No: D o not add to previous draw Performed By: #### 1 0070, 74864, 63247 #### [facility] [address] [place] [address], [facility] Creatinine [Mass/Vol] 1.74 mg/dL High 0.60-1.20 [facility] Comment on above: Order Comment: No: D o not add to previous draw Performed By: #### 1 0070, 91219, 37424 #### [facility] [address] [place] [address], [place] eGFR- 34 ml/min/1.73sq m Abnormal >60 [facility] Comment on above: Order Comment: No: D o not add to previous draw Result Comment: Calc ulation may not be valid for patients over 70 years Performed By: #### 1 0070, 46617, 85220 #### [facility] [address] [place] [address], [place] eGFR- non- 28 ml/min/1.73sq m Abnormal >60 [facility] Comment on above: Order Comment: No: D o not add to previous draw Result Comment: Calc ulation may not be valid for patients over 70 years Performed By: #### 1 0, 93605, 15636 #### [facility] [address] [place] [address], [place] Glucose [Mass/Vol] 175 mg/dL High 70-100 [facility] Comment on above: Order Comment: No: D o not add to previous draw Performed By: #### 1 0, 62077, 97888 #### [facility] [address] [place] [address], [place] Potassium [Moles/Vol] 4.3 mmol/L Normal 3.5-5.1 [facility] Comment on above: Order Comment: No: D o not add to previous draw Performed By: #### 1 0, 47522, 90926 #### [facility] [address] [place] [address], [place] Sodium [Moles/Vol] 138 mmol/L Normal 136-145 [facility] Comment on above: Order Comment: No: D o not add to previous draw Performed By: #### 1 0, 40637, 88784 #### [facility] [address] [place] [address], [place] Urea nitrogen [Mass/Vol] 44 mg/dL High 7-25 [facility] Comment on above: Order Comment: No: D o not add to previous draw Performed By: #### 1 0070, 12010, 10527 #### [facility] [address] [place] [address], [facility] CBC COMPLETE BLOOD COUNTon 0 02-19-2022 Erythrocyte distribution width (RBC) [Ratio] 14.3 % Normal 11.5-15.0 [facility] Comment on above: Order Comment: No: D o not add to previous draw Performed By: #### 1 0, 96223, 14926 #### [facility] [address] [place] [address], [facility] Hematocrit (Bld) [Volume fraction] 41.4 % Normal 36.0-45.0 [facility] Comment on above: Order Comment: No: D o not add to previous draw Performed By: #### 1 0, 78802, 16472 #### [facility] [address] [place] [address], [facility] Hemoglobin (Bld) [Mass/Vol] 13.2 g/dL Normal 12.0-15.0 [facility] Comment on above: Order Comment: No: D o not add to previous draw Performed By: #### 1 0, 84614, 04123 #### [facility] [address] [place] [address], [facility] MCH (RBC) [Entitic mass] 30.0 pg Normal 27.0-33.0 [facility] Comment on above: Order Comment: No: D o not add to previous draw Performed By: #### 1 0070, 73637, 80026 #### [facility] [address] [place] [address], [facility] MCHC (RBC) [Mass/Vol] 31.9 g/dL Low 32.0-35.0 [facility] Comment on above: Order Comment: No: D o not add to previous draw Performed By: #### 1 0070, 81571, 43139 #### [facility] [address] [place] [address], [facility] MCV (RBC) [Entitic vol] 94.1 fL Normal 82.0-98.0 [facility] Comment on above: Order Comment: No: D o not add to previous draw Performed By: #### 1 0, 88135, 01620 #### [facility] [address] [place] [address], [facility] Nucleated RBC/100 WBC (Bld) [Ratio] 0 % Normal 0-0 [facility] Comment on above: Order Comment: No: D o not add to previous draw Performed By: #### 1 0, 63104, 71868 #### [facility] [address] [place] [address], [facility] PLAT CNT 208 10*3/uL Normal 150-400 [facility] Comment on above: Order Comment: No: D o not add to previous draw Performed By: #### 1 0, 22177, 74390 #### [facility] [address] [facility] [address], [facility] RBC (Bld) [#/Vol] 4.40 10*6/uL Normal 3.80-5.00 [facility] Comment on above: Order Comment: No: D o not add to previous draw Performed By: #### 1 0, 28873, 78686 #### [facility] [address] [place] [id number], [facility] WBC (Bld) [#/Vol] 9.88 10*3/uL Normal 4.00-10.60 [facility] Comment on above: Order Comment: No: D o not add to previous draw Performed By: #### 1 0070, 34823, 99551 #### [facility] [address] [place] [id number], [facility] MAGNESIUM BLOODon 02-19-2022 Magnesium [Mass/Vol] 2.1 mg/dL Normal 1.9-2.7 [facility] Comment on above: Order Comment: No: D o not add to previous draw Performed By: #### 1 0070, 94136, 36946 #### [facility] [address] [facility] [address], [facility] PHOSPHORUS BLOODon Phosphate [Mass/Vol] 4.1 mg/dL Normal 2.5-5.0 [facility] Comment on above: Order Comment: No: D o not add to previous draw Performed By: #### 1 0070, 09569, 78302 #### [facility] [address] [place] [address], [facility] POC GLUCOSE LABon 02-19-2022 Glucose [Mass/Vol] 86 mg/dL Normal 70-100 [facility] Comment on above: Performed By: #### 1 0070, 68882, 38282 #### [facility] [address] [place] [address], [facility] PORTABLE CHEST 1 VIEWon PORTABLE CHEST 1 VIEW [facility] Department of Radiology [address] [place] [id number] Patient Name: EUNICE THACKER : 1940 Sex: F Age: Race: White Pt. Location: [place] [address] Patient Status: I Ordered Date: 02/19/2022 11:00:00 AM Completed Date: 02/19/2022 12:36 PM Requesting Provider: BERNIE BLANCO Attending Provider: CHANNING RUSH Report Copy To: Signs & Symptoms: Post OP History: Comments: Pneumothorax, please obtain in PACU Exam: PORTABLE CHEST 1 VIEW PORTABLE CHEST 1 VIEW 02/19/2022 12:36 PM CLINICAL INDICATIONS: Post OP TECHNOLOGIST COMMENTS: Post OP QUESTION FOR THE RADIOLOGIST: Pneumothorax, please obtain in PACU PROTOCOL: AP(PA) view was obtained. COMPARISON: February 13, 2022. FINDINGS: Sternotomy wires, cardiomegaly and pacemaker/AICD device remain. No pneumothorax identified. A modest inspiratory effort has been obtained with resultant crowding of bronchovascular markings. Underlying pulmonary edema cannot be excluded. IMPRESSION: No pneumothorax appreciated. Electronically signed: Joe Mi. Transcribed by: [email or web address], User Resident: Electronically Signed by: JOE MI @ 02/19/2022 12:52 PM Normal [facility] Comment on above: Order Comment: Pneum othorax, please obtain in PACU PROTHROMBIN TIMEon INR Coag (PPP) [Relative time] 1.15 {INR} Normal 0.91-1.16 [facility] Comment on above: Order Comment: No: D o not add to previous draw Result Comment: ACCC P RECOMMENDED INR FOR WARFARIN THERAPY ------- ------- CONDITION INR PROPHYLAXIS OF VENOUS THROMBOSIS 2-3 (HIGH-RISK SURGERY) TREATMENT OF VENOUS THROMBOSIS 2-3 TREATMENT OF PULMONARY EMBOLISM 2-3 PREVENTION OF SYSTEMIC EMBOLISM: 2-3 ACUTE MYOCARDIAL INFARCTION TISSUE HEART VALVES VALVULAR HEART DISEASE ATRIAL FIBRILLATION RECURRENT SYSTEMIC EMBOLISM MECHANICAL HEART VALVE 2.5-3.5 FROM: ORAL ANTICOAGULANTS. MECHANISM OF ACTION, CLINICAL EFFECTIVENESS, AND OPTIMAL THERAPEUTIC RANGE. CHEST 1995;108:231S-246S. Performed By: #### 1 0070, 14514, 90129 #### [facility] [address] [place] [address], [place] PT Coag (PPP) [Time] 14.6 s Normal 12.3-14.8 [facility] Comment on above: Order Comment: No: D o not add to previous draw Result Comment: ALL RESULTS MUST BE INTERPRETED WITH RESPECT TO BLOOD DRAWING ARTIFACT OR DILUTION ERROR OF ANTICOAGULANT AT THE TIME OF SAMPLING. Performed By: #### 1 0070, 23507, 35475 #### [facility] [address] [place] [address], [place] INR Coag (PPP) [Relative time] 1.09 {INR} Normal 0.91-1.16 [facility] Comment on above: Result Comment: ACCC P RECOMMENDED INR FOR WARFARIN THERAPY ------- ------- CONDITION INR PROPHYLAXIS OF VENOUS THROMBOSIS 2-3 (HIGH-RISK SURGERY) TREATMENT OF VENOUS THROMBOSIS 2-3 TREATMENT OF PULMONARY EMBOLISM 2-3 PREVENTION OF SYSTEMIC EMBOLISM: 2-3 ACUTE MYOCARDIAL INFARCTION TISSUE HEART VALVES VALVULAR HEART DISEASE ATRIAL FIBRILLATION RECURRENT SYSTEMIC EMBOLISM MECHANICAL HEART VALVE 2.5-3.5 FROM: ORAL ANTICOAGULANTS. MECHANISM OF ACTION, CLINICAL EFFECTIVENESS, AND OPTIMAL THERAPEUTIC RANGE. CHEST 1995;108:231S-246S. Performed By: #### 3 1791 #### [facility] [address] [place] [address], [place] PT Coag (PPP) [Time] 14.1 s Normal 12.3-14.8 [facility] Comment on above: Result Comment: ALL RESULTS MUST BE INTERPRETED WITH RESPECT TO BLOOD DRAWING ARTIFACT OR DILUTION ERROR OF ANTICOAGULANT AT THE TIME OF SAMPLING. Performed By: #### 3 1791 #### [facility] [address] *SARS-CoV-2 COVID-19on 02-17 SARS-CoV-2 (COVID-19) RNA AUDREY+probe Ql (Unsp spec) Not detected Normal Not Detected [facility] Comment on above: Order Comment: No: D o not add to previous draw Performed By: #### 1 0070, 51847, 36856 #### [facility] [address] [facility] [address] *MRSA/MSSA DNA NASALon 02-13 *MRSA/MSSA DNA NASAL Clinical Report: (D ) Specimen: NASAL SWAB Collected: 02/13/2022 14:12 Status: Final Last Updated: 02/14/2022 16:30 MSSA DNA (Final) Negative MRSA DNA (Final) Negative Normal [facility] Comment on above: Performed By: #### 1 0070, 49137, 01376 #### [facility] [address] [facility] [address] APTTon 02-13-2022 aPTT Coag (Bld) [Time] 42.7 s High 25.0-35.0 [facility] Comment on above: Result Comment: ALL RESULTS MUST BE INTERPRETED WITH RESPECT TO BLOOD DRAWING ARTIFACT OR DILUTION ERROR OF ANTICOAGULANT AT THE TIME OF SAMPLING. THE APTT SHOULD NOT BE USED TO MONITOR UNFRACTIONATED HEPARIN THERAPY, THIS LABORATORY NO LONGER HAS AN ESTABLISHED THERAPEUTIC RANGE BASED ON THE APTT. IT IS RECOMMENDED THAT THE UFH - HEPARIN ASSAY (ANTI-XA ACTIVITY) BE USED FOR THIS PURPOSE. Performed By: #### 1 0070, 03182, 00198 #### [facility] [address] [place] [address], [facility] BASIC METABOLIC PANELon Calcium [Mass/Vol] 9.4 mg/dL Normal 8.6-10.3 [facility] Comment on above: Performed By: #### 0 0071 #### [facility] [address] [place] [address], [place] Chloride [Moles/Vol] 102 mmol/L Normal 98-107 [facility] Comment on above: Performed By: #### 0 0071 #### [facility] [address] [place] [address], [place] CO2 [Moles/Vol] 26 mmol/L Normal 21-[address] [facility] Comment on above: Performed By: #### 0 0071 #### [facility] [address] [place] [address], [facility] Creatinine [Mass/Vol] 1.64 mg/dL High 0.60-1.20 [facility] Comment on above: Performed By: #### 0 0071 #### [facility] [address] [place] [address], [facility] eGFR- 36 ml/min/1.73sq m Abnormal >60 [facility] Comment on above: Result Comment: Calc ulation may not be valid for patients over 70 years Performed By: #### 0 0071 #### [facility] [address] [place] [address], [facility] eGFR- non- 30 ml/min/1.73sq m Abnormal >60 [facility] Comment on above: Result Comment: Calc ulation may not be valid for patients over 70 years Performed By: #### 0 0071 #### [facility] [address] [place] [address], [place] Glucose [Mass/Vol] 80 mg/dL Normal 70-100 [facility] Comment on above: Performed By: #### 0 0071 #### [facility] [address] Potassium [Moles/Vol] 4.8 mmol/L Normal 3.5-5.1 [facility] Comment on above: Performed By: #### 0 0071 #### [facility] [address] [place] [address], [facility] Sodium [Moles/Vol] 138 mmol/L Normal 136-145 [facility] Comment on above: Performed By: #### 0 0071 #### [facility] [address] Urea nitrogen [Mass/Vol] 38 mg/dL High 7-25 [facility] Comment on above: Performed By: #### 0 0071 #### [facility] [address] CBC W/DIFFon 02-13-2022 ABS IMM GRANS 0.0 10*3/uL Normal 0.0-0.2 [facility] Comment on above: Performed By: #### 1 0070, 04665, 55975 #### [facility] [address] ABS NEUTROPHILS 4.0 10*3/uL Normal 1.6-7.6 [facility] Comment on above: Performed By: #### 1 0070, 79881, 79450 #### [facility] [address] Basophils (Bld) [#/Vol] 0.1 10*3/uL Normal 0.0-0.2 [facility] Comment on above: Performed By: #### 1 0070, 48212, 36715 #### [facility] [address] [place] [address], [facility] Basophils/100 WBC (Bld) 0.7 % Normal 0.0-1.0 [facility] Comment on above: Performed By: #### 1 0070, 03133, 76694 #### [facility] [address] [place] [address], [facility] Eosinophils (Bld) [#/Vol] 0.1 10*3/uL Normal 0.0-0.5 [facility] Comment on above: Performed By: #### 1 0, , 08366 #### [facility] [address] [place] [address], [facility] Eosinophils/100 WBC (Bld) 1.4 % Normal 0.0-6.0 [facility] Comment on above: Performed By: #### 1 0, , 99086 #### [facility] [address] [facility] [place] [address], [facility] Erythrocyte distribution width (RBC) [Ratio] 14.3 % Normal 11.5-15.0 [facility] Comment on above: Performed By: #### 1 69, , 39434 #### [facility] [address] [place] [address], [facility] Hematocrit (Bld) [Volume fraction] 43.5 % Normal 36.0-45.0 [facility] Comment on above: Performed By: #### 1 0, 11323, 68907 #### [facility] [address] [facility] [place] [address], [facility] Hemoglobin (Bld) [Mass/Vol] 13.7 g/dL Normal 12.0-15.0 [facility] Comment on above: Performed By: #### 1 0, , 32248 #### [facility] [address] [facility] [place] [address], [facility] IMMATURE GRANS 0.4 % Normal 0.0-1.0 [facility] Comment on above: Performed By: #### 1 0, 10277, 34282 #### [facility] [address] [place] [address], [facility] Lymphocytes (Bld) [#/Vol] 2.4 10*3/uL Normal 1.2-4.0 [facility] Comment on above: Performed By: #### 1 0, , 80102 #### [facility] [address] [facility] [address], [facility] Lymphocytes/100 WBC (Bld) 33.6 % Normal 20.0-45.0 [facility] Comment on above: Performed By: #### 1 0, , 98233 #### [facility] [address] MCH (RBC) [Entitic mass] 29.1 pg Normal 27.0-33.0 [facility] Comment on above: Performed By: #### 1 69, , 76850 #### [facility] [address] MCHC (RBC) [Mass/Vol] 31.5 g/dL Low 32.0-35.0 [facility] Comment on above: Performed By: #### 1 69, , 72380 #### [facility] [address] [place] [address], [facility] MCV (RBC) [Entitic vol] 92.6 fL Normal 82.0-98.0 [facility] Comment on above: Performed By: #### 1 69, , 16366 #### [facility] [address] [facility] [address], [facility] Monocytes (Bld) [#/Vol] 0.5 10*3/uL Normal 0.1-1.0 [facility] Comment on above: Performed By: #### 1 0, , 11060 #### [facility] [address] [place] [address], [facility] MONOS 7.6 % Normal 5.0-12.0 [facility] Comment on above: Performed By: #### 1 0070, 73299, 55913 #### [facility] [address] [facility] [place] [address], [facility] Neutrophils/100 WBC (Bld) 56.3 % Normal 40.0-72.0 [facility] Comment on above: Performed By: #### 1 0070, 41545, 91155 #### [facility] [address] [facility] [address], [facility] Nucleated RBC/100 WBC (Bld) [Ratio] 0 % Normal 0-0 [facility] Comment on above: Performed By: #### 1 0070, 95923, 28812 #### [facility] [address] [facility] [address], [facility] PLAT CNT 216 10*3/uL Normal 150-400 [facility] Comment on above: Performed By: #### 1 0070, 89433, 83130 #### [facility] [address] [facility] [address], [facility] RBC (Bld) [#/Vol] 4.70 10*6/uL Normal 3.80-5.00 [facility] Comment on above: Performed By: #### 1 0070, 04565, 97473 #### [facility] [address] [facility] [address], [facility] WBC (Bld) [#/Vol] 7.08 10*3/uL Normal 4.00-10.60 [facility] Comment on above: Performed By: #### 1 0070, 49039, 63952 #### [facility] [address] [place] [address], [facility] CHEST AND LATERALon 02-14-20 CHEST AND LATERAL [facility] Department of Radiology [address] [place] [id number] Patient Name: EUNICE THACKER : 1940 Sex: F Age: Race: White Pt. Location: Patient Status: D Ordered Date: 02/13/2022 2:40:00 PM Completed Date: 02/13/2022 02:45 PM Requesting Provider: CHANNING RUSH Attending Provider: CHANNING RUSH Report Copy To: Signs & Symptoms: I48.0 Paroxysmal atrial fibrillation I10 History: [place] Comments: , , , Ordering Provider - CHANNING RUSH MD , Exam: CHEST AND LATERAL CHEST AND LATERAL 02/13/2022 2:45 PM CLINICAL INDICATIONS: I48.0 Paroxysmal atrial fibrillation I10 TECHNOLOGIST COMMENTS: shortness of breath check leads placement defibrillator placed a few weeks ago QUESTION FOR THE RADIOLOGIST: , , , Ordering Provider - CHANNING RUSH MD , PROTOCOL: AP(PA) and Lateral views were obtained. COMPARISON: October 11, 2009 FINDINGS: Patient is likely noted. Pacemaker are noted with overlying leads projected in the lesion of the cardia mediastinal silhouette terminating in the appropriate position within the cardiac silhouette. Sternotomy wires. Heart size normal. Lung olson well-inflated without acute airspace disease. There is osteopenic bones with a kyphotic angulation with multiple compression deformities the degree seen in the lumbar spine that appears accentuated when compared to the prior study. There is also a lucency projected over the cardiac silhouette consistent with the presence of a hiatus hernia. Incidental note is made of a well delineated density in the right lung consistent with the presence of a calcified granuloma. IMPRESSION: No acute findings. Mild air trapping may be present. Compression deformities of the spinal column are noted age indeterminate. Hiatus hernia noted. Electronically signed: Jason Vázquez. Transcribed by: [email or web address], User Resident: Electronically Signed by: JASON VÁZQUEZ @ 02/14/2022 09:46 AM Normal [facility] Comment on above: Order Comment: No: D o not add to previous draw HEMOGLOBIN A1Con 02-13-2022 Glucose [Moles/Vol] 114 mmol/L Normal [facility] Comment on above: Performed By: #### 3 1791 #### [facility] [address] HbA1c (Bld) [Mass fraction] 5.6 % Normal 4.0-6.0 [facility] Comment on above: Performed By: #### 3 1791 #### [facility] [address] [facility]. [address] PROTHROMBIN TIMEon 2 INR Coag (PPP) [Relative time] 2.43 {INR} High 0.91-1.16 [facility] Comment on above: Result Comment: ACCC P RECOMMENDED INR FOR WARFARIN THERAPY ------- ------- CONDITION INR PROPHYLAXIS OF VENOUS THROMBOSIS 2-3 (HIGH-RISK SURGERY) TREATMENT OF VENOUS THROMBOSIS 2-3 TREATMENT OF PULMONARY EMBOLISM 2-3 PREVENTION OF SYSTEMIC EMBOLISM: 2-3 ACUTE MYOCARDIAL INFARCTION TISSUE HEART VALVES VALVULAR HEART DISEASE ATRIAL FIBRILLATION RECURRENT SYSTEMIC EMBOLISM MECHANICAL HEART VALVE 2.5-3.5 FROM: ORAL ANTICOAGULANTS. MECHANISM OF ACTION, CLINICAL EFFECTIVENESS, AND OPTIMAL THERAPEUTIC RANGE. CHEST 1995;108:231S-246S. Performed By: #### 1 0070, 31212, 16619 #### [facility] [address] PT Coag (PPP) [Time] 25.9 s High 12.3-14.8 [facility] Comment on above: Result Comment: ALL RESULTS MUST BE INTERPRETED WITH RESPECT TO BLOOD DRAWING ARTIFACT OR DILUTION ERROR OF ANTICOAGULANT AT THE TIME OF SAMPLING. Performed By: #### 1 0070, 83780, 73963 #### [facility] [address] [facility]. [address] TYPE AND CROSSMATCHon 2021 ABO INTERPRETATION O Normal [facility] Comment on above: Performed By: #### 1 0070, 41227, 55580 #### [facility] [address] RH INTERPRETATION Positive Normal [facility] Comment on above: Performed By: #### 1 0070, 77038, 95573 #### [facility] [address] [facility]. [address] URINALYSIS REFLEXon 02-14-20 22 Appearance (U) SL CLOUDY Abnormal CLEAR [facility] Comment on above: Performed By: #### 1 0070, 26061, 55023 #### [facility] [address] [facility] [address] Bilirubin Ql (U) Negative Normal NEGATIVE [facility] Comment on above: Performed By: #### 1 0070, 58502, 71517 #### [facility] [address] [facility] [address], [facility] Color (U) YELLOW Normal YELLOW [facility] Comment on above: Performed By: #### 1 0070, 09273, 60795 #### [facility] [address] [place] [address], [place] Glucose Ql (U) Negative Normal NEGATIVE [facility] Comment on above: Performed By: #### 1 0070, 28705, 81830 #### [facility] [address] [place] [address], [place] Hemoglobin Ql (U) Negative Normal NEGATIVE [facility] Comment on above: Performed By: #### 1 0070, 67241, 93010 #### [facility] [address] [place] [address], [place] KETONE Negative Normal NEGATIVE [facility] Comment on above: Performed By: #### 1 0070, 12688, 63098 #### [facility] [address] [facility] [place] [address], [place] LEUK DEEPTHI Negative Normal NEGATIVE [facility] Comment on above: Performed By: #### 1 0070, 31391, 09888 #### [facility] [address] [facility] [place] [place] [address], [place] MICRO NOT DONE Normal [facility] Comment on above: Result Comment: Micr oscopics not performed on urines with negative chemical reactions unless requested in original order Performed By: #### 1 0070, 52583, 73132 #### [facility] [address] [facility] [place] [place] [address], [place] Nitrite Ql (U) Negative Normal NEGATIVE [facility] Comment on above: Performed By: #### 1 0070, 37078, 38659 #### [facility] [address] [facility] [place] [address], [place] pH (U) 7.0 [pH] Normal 5.0-8.0 [facility] Comment on above: Performed By: #### 1 0070, 14278, 77262 #### [facility] [address] [place] [address], [place] Protein Ql (U) Negative Normal NEGATIVE [facility] Comment on above: Performed By: #### 1 0070, 20831, 16692 #### [facility] [address] [place] [address], [facility] SPEC GRAV 1.014 Low 1.015-1.020 [facility] Comment on above: Performed By: #### 1 0070, 23560, 45870 #### [facility] [address] [place], [place] [id number] [place] [address] Cardiovascular Lab Reporton 01-27-2022 Cardiovascular Lab Report [facility] Patient Name: [facility] MR #: [id number] Department of Physician: Eric Handley MD Medicine Service Date: 01/27/2022 Division of Birthdate: 1940 Cardiology Room #: CC Adult Cardiovascular Services [facility] [address] [place] [address] Cardiovascular Laboratory Report BIV-UPGRADE PROCEDURE NOTE DATE OF PROCEDURE: 01/27/2022 PERFORMING PHYSICIAN: Dr. Eric Handley CONSENT: Patient LOCATION: EP Lab PROCEDURE PERFORMED: 1. Implantation of Biventricular ICD ([employer]). 2. Explantation of previously implanted pacemaker generator ([employer]). 3. Left axillary venogram. 4. Coronary sinus venogram. INDICATIONS: 1. Ischemic cardiomyopathy with no reversibe cause 2. Dilated cardiomyopathy 3. Chronic RV pacing (100%) 4. Chronic SHF NYHA Class III PROCEDURAL SEDATION: Versed and Fentanyl. Moderate sedation was administered by the sedation nurse under my supervision and noted in the CVL log. Intraprocedural face to face sedation time: 61min. Monitoring: Cardiac telemetry, Blood pressure, continuous pulse oxymetry. FLUROSCOPY: 21 minutes 18 seconds/86 mGy. PREPARATION: 81-year-old lady with a history of cardiomyopathy with 100% RV pacing was noted to have LV dysfunction. She is eligible for a POLYMERIZATION KETTLE OPERATOR-D upgrade. She was noted to have a pacing system that were [place] [address] Best with a generator change that was done [place] [address] Bennett. Patient was brought to the EP lab in the post absorptive state. A procedural pause was performed identifying the patient, the procedure to be performed and the site of implant. The left chest was prepped and draped in the usual sterile fashion. Preoperative antibiotics IV Ancef was administered. PROCEDURAL DETAILS: Initially right femoral vein access was procured with ultrasound guidance. 8-Paraguayan sheath was placed and a [employer] Axon steer CS catheter was advanced into the CS body and placed for fluoroscopic guidance. Patient was placed in trendelenberg position and preoperative venogram of the left upper extremity was performed using 10 cc contrast to evaluate the patency of left axillary vein. Once it was determined that the vein was patient, I decided to proceed with opening of the pocket. Local infiltration of 1% Lidocaine was performed, and an incision was created in the left upper chest. Dissection was then performed using cautery down to the capsule of the previously implanted device. Access was acquired and notably there was significant scarring noted, which made the advancement of the wire very difficult. Once the micropuncture wire could be accessed down, the sheath was passed and a venogram was performed. This confirmed narrowing of the vessels. Thereafter, an 8-Paraguayan dilator was advanced over the wire but it was difficult to move the dilator down. So an Amplatz wire was attempted to advance, which was unsuccessful. Therefore, this was changed out and a Glidewire was advanced, which could advance down into the right atrium. I tried to advance the sheath over this, which was unsuccessful. A short 8-Paraguayan was advanced and thereafter a complete Ashton catheter was advanced over the Glidewire and manipulating this I could advance the wire down into the RV. Following this, the Glidewire was removed. An Amplatz wire was advanced for support over the sheath. Thereafter, both the sheaths were removed and over this serial dilatations was performed with 6-Paraguayan dilator and a 9-Paraguayan sheath dilator. Following which a 9-Paraguayan long sheath was advanced to the lower RA. I then proceeded to place the ICD lead. It was very difficult to access the wire down into the RV given the fact that the RV was dilated and there was very little maneuverability of the sheath due to the significant scarring and lack of transmission of torque with manipulation. The RV lead was advanced into the RVOT and with manipulation, I got the lead to position in the lower mid septum. This was chosen and the sheath split and the lead secured in the pocket using three 1-0 Ethibond sutures. I abandoned the LV lead placement as there was no lumen available for LV lead placement and opted for epicardial lead placement. The old RA pacing lead, new RV ICD lead was attached to a [employer] POLYMERIZATION KETTLE OPERATOR-D device and the leads tug tested. LV port was capped. The old RV pacing lead was then capped using two 1-0 Ethibond sutures. Pocket hemostasis was secured and it was then copiously and vigorously irrigated with Bacitracin/Polymixin solution. The leads were wrapped under the device and the device was placed in the pocket and the device tacked to the underlying capsule as well as muscle. The pocket was closed in layers: subcutaneous layer using 2-0 Vicryl and skin using 3-0 Monocryl. Occlusive dressing was placed on top. (more content not included)... Normal [facility] Encounters Encounter Date Encounter Type Care Provider Facility Start: 01-12-2023 End: 02-11-2023 ambulatory [facility]LLINS H [facility] Facility:[facility] Start: 12-15-2022 End: 01-09-2023 ambulatory [facility] Facility:[facility] Start: 11-20-2022 End: 11-21-2022 ambulatory [facility] Facility:[facility] Start: 11-12-2022 End: 12-12-2022 ambulatory [facility] Facility:[facility] Start: 10-15-2022 End: 11-12-2022 ambulatory [facility] Facility:[facility] Start: 10-09-2022 ambulatory [facility] Start: 10-07-2022 End: 10-07-2022 ambulatory [facility] Start: 09-15-2022 End: 10-15-2022 ambulatory [facility] H [facility] Facility:[facility] Start: 08-14-2022 End: 09-14-2022 ambulatory [facility] H [facility] Facility:[facility] Start: 07-15-2022 End: 08-13-2022 ambulatory [facility] H [facility] Facility:[facility] Start: 06-15-2022 End: 07-14-2022 ambulatory [facility] Facility:[facility] Start: 05-15-2022 End: 06-14-2022 ambulatory [facility] Facility:[facility] Start: 05-06-2022 End: 05-07-2022 ambulatory [facility] Facility:[facility] Start: 04-26-2022 End: 04-28-2022 ambulatory [facility] Facility:[facility] Start: 04-14-2022 End: 05-14-2022 ambulatory [facility] Facility:[facility] Start: 03-21-2022 End: 03-22-2022 ambulatory COLLINS H FAShenaWAD Facility:[facility] Start: 03-14-2022 End: 04-11-2022 ambulatory EDYTA MORENO Facility:[facility] Start: 02-19-2022 End: 02-21-2022 Evaluation and management of inpatient CHANNING TERRI Facility:[facility] Start: 02-05-2022 End: 02-22-2022 ambulatory CHANNING PATRIAOR Facility:[facility] Start: 01-27-2022 End: 01-28-2022 ambulatory ERIC HANDLEY Facility:[facility] Procedures Date Procedure Procedure Detail Performing Clinician Start: 02-13-2022 Antibody screen CHANNING Ric MOORE Comment on above: Performed By: #### 1 [id number], [id number], [id number] #### [address] Payers Date Payer Category Payer Medicare [id number] 1960 Unknown [id number] 1940 Unknown [id number] 2.16.8 [id number] 1940 Unknown [id number] .16.8 40.1.210225.3.579.2.647 1939 Unknown [id number] .16.8 40.1.420160.3.579.2.647 1939 Unknown [id number] 2.16.84 0.1.938896.3.579.2.593 1939 Unknown [id number] 2.16.84 0.1.833431.3.579.2.593 1939 Unknown [id number] 2.16.84 0.1.933430.3.579.2.593 1939 Unknown [id number] 2.16.84 0.1.450969.3.579.2.593 1939 Unknown [id number] 2.16.84 0.1.668318.3.579.2.593 1939 Unknown [id number] 2.16.84 0.1.510230.3.579.2.593 1939 Unknown [id number] 2.16.84 0.1.797143.3.579.2.593 1939 Unknown [id number] 2.16.84 0.1.747618.3.579.2.593 1939 Unknown [id number] 2.16.84 0.1.274004.3.579.2.593 1939 Unknown [id number] 2.16.84 0.1.218035.3.579.2.593 1939 Unknown [id number] 2.16.84 0.1.244627.3.579.2.593 1939 Unknown [id number] 2.16.84 0.1.649705.3.579.2.593 1939 Unknown [id number] 2.16.84 0.1.412672.3.579.2.593 1939 Unknown [id number] 2.16.84 0.1.113778.3.579.2.593 1939 Unknown [id number] 2.16.84 0.1.852403.3.579.2.593 Summary Purpose Family History No Family History Records FoundNo Family History Records FoundNo Family History Records Found Advance Directives No Advanced Directives Records FoundNo Advanced Directives Records FoundNo Advanced Directives Records Found Additional Source Comments INFORMATION SOURCE (unrecogn ized section and content) DATE CREATED AUTHOR 03/01/2022 [facility] DATE CREATED AUTHOR AUTHOR'S DAVONIZ ATCHERYLE 10/12/2022 [facility] DATE CREATED AUTHOR AUTHOR'S ORGANIZ ATION 02/20/2023 [facility] FOR RECORDS PERTAINING TO PATIENTS WHO ARE OR HAVE BEEN ENROLLED IN A CHEMICAL DEPENDENCY/SUBSTANCEABUSE PROGRAM, SOME INFORMATION MAY BE OMITTED. This clinical summary was aggregated from multiple sources. Caution should be exercised in using it in the provision of clinical care. This summary normalizes information from multiple sources, and as a consequence, information in this document may materially change the coding, format and clinical context of patient data. In addition, data may be omitted in some cases. CLINICAL DECISIONS SHOULD BE BASED ON THE PRIMARY CLINICAL RECORDS. [email or web address] [facility]. provides no warranty or guarantee of the accuracy or completeness of information in this document.
== END 2023-09-05 18:41 | disposition home or self-care (01) ==
PROVIDERS: Emergency Provider Emergency Medicine; PCP Internal Medicine
DX: Z09 Encounter for follow-up examination after completed treatment for conditions other than malignant neoplasm (principal); Z79.01 Long term (current) use of anticoagulants; Z79.899 Other long term (current) drug therapy
CPT/HCPCS: 99281